=== PATIENT | female | born 1965 | race Caucasian/White ===

== ENCOUNTER 2016-08-20 22:14 | Observation (INO) ==
[2016-08-20 23:41] LABS: Basophils % 0.3 %; Eosinophils # 0.2 K/mcL (0.0-0.6); Eosinophils % 1.8 %; Hematocrit 43.7 % (35.3-44.9); Hemoglobin 14.7 g/dL (11.5-15.4); Immature Granulocytes % 0.1 % (0-4); Immature Platelets 8.1 % (1.1-6.1); Mean Corpuscular HGB Conc 33.6 g/dL (31.6-35.5); Mean Corpuscular Hemoglobin 32.5 pg (28.0-33.3); Mean Corpuscular Volume 96.5 fL (83.0-100.0); Mean Platelet Volume 11.7 fL (9.4-12.4); Monocytes # 0.6 K/mcL (0.0-1.3); Monocytes % 6.6 %; Neutrophils # 5.1 K/mcL (1.6-8.9); Platelet Count 189 K/mcL (140-400); Red Blood Count 4.53 M/mcL (3.82-4.97); Red Cell Distribution Width 13.7 % (11.5-14.5); Segmented Neutrophils % 57.2 %
[2016-08-20 23:47] LABS: INR 1.3; Prothrombin Time 14.2 Seconds (9.4-12.1)
--- NOTE | 2016-08-20 23:47 | Emergency Department Note ---
Disposition Clinical Impression: Palpitations Chest pain Qualifiers: Chest pain type: unspecified Qualified Code(s): R07.9 - Chest pain, unspecified Disposition: Admitted As Inpatient Condition: Fair Arrhythmia/Palpitations HPI - General Chief Complaint: ED Arrhythmia/Palpitations Stated Complaint: afib Time Seen by Provider: 08/20/16 23:14 Source: patient Nursing Notes Reviewed: Yes Vital Signs Reviewed: Yes - History of Present Illness HPI Narrative: 50-year-old alert and oriented nontoxic appearing female presents to the emergency department for a chief complaint of "A. fib". The patient states that she awoke this morning with a sensation of palpitations. She states that these palpitations were Made with episodes of shortness of breath but even occurred at rest. She also complains of a "burning in her chest" that she describes as substernal in nature. She complains of painful inspiration, but states that the pain is primarily located in her upper back when she takes a deep breath. She denies any nausea, vomiting, or diaphoresis. She denies any fever. She does complain of a dry nonproductive cough that is intermittent in nature. She states that her shortness of breath occurs at exertion, at rest, and is worsened by lying flat. She also complains of pain in her right calf, as well as swelling in her right calf compared to her left. She states that she has had a previous DVT in the right lower extremity. She is currently on Elaqius for DVT prophylaxis. Pt Subjective Complaint: palpitations Onset (ago): hour(s) Duration: intermittent Severity: moderate Context: occurred during rest Arrhythmia History: atrial fibrillation, AICD Associated symptoms: Reports: chest pain, shortness of breath, cough, muscle cramps. Denies: nausea, vomiting, diaphoresis - Related Data Home Medications Medication Instructions Recorded Confirmed Alprazolam [Xanax 1 MG Tablet] 1 mg PO TID 03/02/15 12/15/15 Albuterol Sulfate [Albuterol 90 mcg IH Q4HR PRN 08/05/15 12/15/15 Inhaler] Alprazolam [Xanax] 2 mg PO HS 08/05/15 12/15/15 Melatonin 5 mg PO HS PRN 08/05/15 12/15/15 Oxycodone HCl/Acetaminophen 1 each PO QID PRN 08/13/15 12/15/15 [Percocet 5-325 mg Tablet] Atenolol [Tenormin] 50 mg PO DAILY 12/15/15 12/15/15 Mupirocin 1 gm TP TID 12/15/15 12/15/15 Zolpidem [Ambien] 5 mg PO HS PRN 12/15/15 12/15/15 Previous Rx's Medication Instructions Recorded Apixaban [Eliquis] 5 mg PO BID #60 tablet 08/17/15 Apixaban [Eliquis] 2.5 mg PO BID #60 tablet 02/24/16 Compression Socks, Medium [Futuro 1 each MC DAILY #2 each 02/24/16 Restoring] Allergies Allergy/AdvReac Type Severity Reaction Status Date / Time citalopram [From Celexa] Allergy See Verified 12/15/15 08:47 Comments morphine Allergy Hives Verified 01/31/16 18:12 Penicillins Allergy Hives Verified 12/15/15 08:47 All systems ED: reviewed and negative except as stated. Constitutional: Denies: fever, chills, weakness, weight change Cardiovascular: Reports: as per HPI, chest pain, palpitations, dyspnea on exertion, edema (Right lower extremity). Denies: syncope Respiratory: Reports: as per HPI, cough, dyspnea. Denies: wheezes, hemoptysis, stridor, sputum production Gastrointestinal: Denies: abdominal pain, nausea, vomiting, diarrhea, constipation, hematemesis, melena, hematochezia Genitourinary: Denies: dysuria, frequency, hematuria, discharge Musculoskeletal: Reports: as per HPI, myalgia (Right lower extremity pain). Denies: back pain, neck pain, arthralgia Integumentary: Denies: rash, abrasion, lesions Neurological: Denies: headache, weakness, numbness, paresthesias, confusion, abnormal gait, vertigo Psychiatric: Denies: anxiety, depression, suicidal thoughts, homicidal thoughts , auditory hallucinations, visual hallucinations Endocrine: Denies: fatigue Hematological/Lymphatic: Denies: easy bleeding, easy bruising Past Medical History - Past Medical History Attestation: Yes The following information was validated with the patient. Source: patient Medical history: Reports: atrial fibrillation, CVA, DVT, pulmonary embolus, other Surgical history: Reports: appendectomy, hysterectomy, pacemaker/AICD, other Psychiatric history: Reports: anxiety, depression CUSTOMER MANAGER history: Reports: no CUSTOMER MANAGER history - Social History Smoking Status: Current every day smoker Smokeless Tobacco Status: No Alcohol use: Reports: none Drug use: Reports: none Physical Exam - General General appearance: alert, in no apparent distress - Head Head exam: atraumatic, normocephalic, normal inspection - Eye Eye exam: Present: normal appearance, PERRL, EOMI. Absent: nystagmus - ENT ENT exam: mucous membranes moist - Neck Neck exam: Present: normal inspection, full ROM, trachea midline - Chest Chest inspection: Present: normal inspection, symmetric chest wall rise - Respiratory Respiratory exam: Present: normal lung sounds bilaterally. Absent: respiratory distress, wheezes, stridor, accessory muscle use, prolonged expiratory phase - Cardiovascular Cardiovascular exam: Present: regular rate, normal rhythm, normal heart sounds - Abdominal Exam Abdominal exam: Present: soft, Non-Tender, normal bowel sounds. Absent: tenderness, distention, guarding, rebound, rigidity - Extremities Exam Extremities exam: Present: normal inspection, full ROM. Absent: tenderness, pedal edema - Neurological Exam Neurological exam: Present: alert, oriented X3 - Psychiatric Psychiatric exam: Present: normal affect, normal mood - Skin Skin exam: Present: warm, dry, intact, normal color. Absent: rash, cyanosis, diaphoresis, erythema, pallor, mottled Course Course Narrative: At this time, laboratory and chest x-ray results are pending. 0057: I discussed this patient's case with Dr. Norwood. Dr. Norwood has had a [id number] evaluation with the patient. Dr. Norwood recommends admission to the hospitalist service for A. fib/chest pain rule out. I have discussed this plan with the patient and the patient is in agreement. Vital Signs Temperature 97.8 F 08/20/16 22:19 Pulse Rate 71 08/20/16 22:19 Respiratory Rate 18 08/20/16 22:19 Blood Pressure 106/69 08/20/16 22:19 O2 Sat by Pulse Oximetry 99 08/20/16 22:19 Temperature 97.8 F 08/20/16 22:19 Pulse Rate 59 08/21/16 00:57 Respiratory Rate 20 08/21/16 02:19 Blood Pressure 85/60 08/21/16 02:19 O2 Sat by Pulse Oximetry 98 08/21/16 00:57 Oxygen Delivery Oxygen Delivery Room Air Arrhythmia/Palpitations - MDM Narrative Medical decision making narrative: 0140: I spoke with Dr. Walker of the hospitalist service. Dr. Walker accepts the patient for admission to the hospital. - Medical Records Medical records reviewed: Yes I reviewed the patient's medical records. - Lab Data Lab results reviewed: Yes I reviewed the patient's lab results. Lab results narrative: Laboratory Last Values WBC 8.9 K/mcL (4.3-11.1) 08/20/16 23:32 RBC 4.53 M/mcL (3.82-4.97) 08/20/16 23:32 Hgb 14.7 g/dL (11.5-15.4) 08/20/16 23:32 Hct 43.7 % (35.3-44.9) 08/20/16 23:32 MCV 96.5 fL (83.0-100.0) 08/20/16 23:32 MCH 32.5 pg (28.0-33.3) 08/20/16 23: MCHC 33.6 g/dL (31.6-35.5) 08/20/16 23:32 RDW 13.7 % (11.5-14.5) 08/20/16 23:32 Plt Count 189 K/mcL (140-400) 08/20/16 23:32 MPV 11.7 fL (9.4-12.4) 08/20/16 23:32 Immature Gran % 0.1 % (0-4) 08/20/16 23: Seg Neutrophils % 57.2 % 08/20/16 23:32 Lymphocytes % 34.0 % 08/20/16 23:32 Monocytes % 6.6 % 08/20/16 23:32 Eosinophils % 1.8 % 08/20/16 23:32 Basophils % 0.3 % 08/20/16 23:32 Neutrophils # 5.1 K/mcL (1.6-8.9) 08/20/16 23:32 Lymphocytes # 3.0 K/mcL (0.6-4.6) 08/20/16 23:32 Monocytes # 0.6 K/mcL (0.0-1.3) 08/20/16 23:32 Eosinophils # 0.2 K/mcL (0.0-0.6) 08/20/16 23:32 Basophils # 0.0 K/mcL (0.0-0.2) 08/20/16 23:32 Immature Plt Fraction 8.1 % (1.1-6.1) H 08/20/16 23:32 PT 14.2 Seconds (9.4-12.1) H 08/20/16 23:32 INR 1.3 08/20/16 23:32 APTT 44.3 Seconds (26.0-36.0) H 08/20/16 23:32 D-Dimer 293 ng/mLFEU (0-500) 08/20/16 Unknown Sodium 142 mEq/L (136-145) 08/20/16 23:32 Potassium 3.9 mEq/L (3.5-4.5) 08/20/16 23:32 Chloride 107 mEq/L (98-109) 08/20/16 23:32 Carbon Dioxide 25 mEq/L (19-29) 08/20/16 23:32 BUN 16 mg/dL (7-20) 08/20/16 23:32 Creatinine 0.92 mg/dL (0.57-1.11) 08/20/16 23:32 Est GFR ( Amer) > 60 (> 60) 08/20/16 23:32 Est GFR (Non-Af Amer) > 60 (> 60) 08/20/16 23:32 BUN/Creatinine Ratio 17 (6-26) 08/20/16 23:32 Glucose 96 mg/dL (70-99) 08/20/16 23:32 Calculated Osmolality 295 (280-300) 08/20/16 23:32 Calcium 9.6 mg/dL (8.6-10.8) 08/20/16 23:32 Troponin I 0.01 ng/mL (0-0.03) 08/20/16 23:32 TSH 2.460 mcIU/mL (0.350-4.840) 08/20/16 23:32 Result diagrams: 08/20/16 23:32 08/20/16 23:32 Lab Results 08/20/16 08/20/16 08/20/16 Range/Units 23:32 23:32 23:32 WBC 8.9 (4.3-11.1) K/mcL RBC 4.53 (3.82-4.97) M/mcL Hgb 14.7 (11.5-15.4) g/dL Hct 43.7 (35.3-44.9) % MCV 96.5 (83.0-100.0) fL MCH 32.5 (28.0-33.3) pg MCHC 33.6 (31.6-35.5) g/dL RDW 13.7 (11.5-14.5) % Plt Count 189 (140-400) K/mcL MPV 11.7 (9.4-12.4) fL Immature Gran % 0.1 (0-4) % Seg Neutrophils % 57.2 % Lymphocytes % 34.0 % Monocytes % 6.6 % Eosinophils % 1.8 % Basophils % 0.3 % Neutrophils # 5.1 (1.6-8.9) K/mcL Lymphocytes # 3.0 (0.6-4.6) K/mcL Monocytes # 0.6 (0.0-1.3) K/mcL Eosinophils # 0.2 (0.0-0.6) K/mcL Basophils # 0.0 (0.0-0.2) K/mcL Immature Plt Fraction 8.1 H (1.1-6.1) % PT 14.2 H (9.4-12.1) Seconds INR 1.3 APTT 44.3 H (26.0-36.0) Seconds D-Dimer (0-500) ng/mLFEU Sodium 142 (136-145) mEq/L Potassium 3.9 (3.5-4.5) mEq/L Chloride 107 (98-109) mEq/L Carbon Dioxide 25 (19-29) mEq/L BUN 16 (7-20) mg/dL Creatinine 0.92 (0.57-1.11) mg/dL Est GFR ( Amer) > 60 (> 60) Est GFR (Non-Af Amer) > 60 (> 60) BUN/Creatinine Ratio 17 (6-26) Glucose 96 (70-99) mg/dL Calculated Osmolality 295 (280-300) Calcium 9.6 (8.6-10.8) mg/dL Troponin I (0-0.03) ng/mL TSH 2.460 (0.350-4.840) mcIU/mL 08/20/16 08/20/16 Range/Units 23:32 Unknown WBC (4.3-11.1) K/mcL RBC (3.82-4.97) M/mcL Hgb (11.5-15.4) g/dL Hct (35.3-44.9) % MCV (83.0-100.0) fL MCH (28.0-33.3) pg MCHC (31.6-35.5) g/dL RDW (11.5-14.5) % Plt Count (140-400) K/mcL MPV (9.4-12.4) fL Immature Gran % (0-4) % Seg Neutrophils % % Lymphocytes % % Monocytes % % Eosinophils % % Basophils % % Neutrophils # (1.6-8.9) K/mcL Lymphocytes # (0.6-4.6) K/mcL Monocytes # (0.0-1.3) K/mcL Eosinophils # (0.0-0.6) K/mcL Basophils # (0.0-0.2) K/mcL Immature Plt Fraction (1.1-6.1) % PT (9.4-12.1) Seconds INR APTT (26.0-36.0) Seconds D-Dimer 293 (0-500) ng/mLFEU Sodium (136-145) mEq/L Potassium (3.5-4.5) mEq/L Chloride (98-109) mEq/L Carbon Dioxide (19-29) mEq/L BUN (7-20) mg/dL Creatinine (0.57-1.11) mg/dL Est GFR ( Amer) (> 60) Est GFR (Non-Af Amer) (> 60) BUN/Creatinine Ratio (6-26) Glucose (70-99) mg/dL Calculated Osmolality (280-300) Calcium (8.6-10.8) mg/dL Troponin I 0.01 (0-0.03) ng/mL TSH (0.350-4.840) mcIU/mL - Radiology Data Radiology results reviewed: Yes I reviewed the patient's radiology results. Chest X-Ray 08/20/16 22:30 IMPRESSION: No acute cardiopulmonary abnormality. D/ / Aravind Maynard MD / Aravind Maynard MD Interpreting Provider: Aravind Maynard MD - EKG Data EKG attestation: Yes I reviewed and interpreted this EKG. EKG results narrative: EKG reviewed by Dr. Norwood as well. EKG shows a sinus rhythm with occasional PVCs at a rate of 75 bpm and a nonspecific T-wave abnormality. No STEMI. EKG shows normal: sinus rhythm Rate: normal Rhythm: NSR Attestation Statement - Attestation Attestation: I, Kamran Norwood MD, personally performed a history and physical exam of the patient and discussed their management with the midlevel provicer, PAC/VULCANIZED FIBER UNIT OPERATOR. I reviewed the midlevel provider's note and agree with the documented findings, medical decision making, and plan of care. 50-year-old female presents to the emergency department with a complaint of palpitations and burning chest pain today. She has a history of atrial fibrillation and has a pacemaker defibrillator. She also complains of pain in her right calf muscle. She has a history of DVT in is on Eliquis. On examination patient is a well-developed well-nourished well-appearing female in no acute distress. She is alert and oriented 3. There is no cyanosis or diaphoresis. Breath sounds are clear and equal bilaterally. Heart regular rate and rhythm. Abdomen soft and nontender with normal bowel sounds. There is mild tenderness of the right posterior calf with no palpable cords. Homans sign is negative. No swelling or discoloration. Labs reviewed. D-dimer normal. Chest x-ray negative. The hospitalist, Dr. Walker, was consulted and accepted admission of the patient. He requested a CTA of the chest.
[2016-08-20 23:50] LABS: Activated Partial Thrombo Time 44.3 Seconds (26.0-36.0)
[2016-08-20 23:52] LABS: BUN/Creatinine Ratio 17 (6-26); Blood Urea Nitrogen 16 mg/dL (7-20); Calcium 9.6 mg/dL (8.6-10.8); Carbon Dioxide 25 mEq/L (19-29); Chloride 107 mEq/L (98-109); Glucose 96 mg/dL (70-99); Osmolality,Calculated 295 (280-300); Potassium 3.9 mEq/L (3.5-4.5); Sodium 142 mEq/L (136-145); eGFR For African Americans > 60 (> 60); eGFR For Non-African Americans > 60 (> 60)
[2016-08-21] MEDS ORDERED: Aspirin 81 MG TAB.CHEW PO ONE (00:57)
[2016-08-21] MEDS ORDERED: Ondansetron ODT 4 MG TAB.RAPDIS SL PRN (04:08)
[2016-08-21] MEDS ORDERED: Acetaminophen 325 MG TABLET PO PRN (04:08)
[2016-08-21] MEDS ORDERED: Naloxone 0.4 MG/ML INJ IVP PRN (04:08)
[2016-08-21] MEDS ORDERED: Melatonin 3 MG TABLET PO PRN (05:14)
--- NOTE | 2016-08-21 06:17 | Internal Med History&Physical ---
<Oneida Juarez - Last Filed: 08/21/16 07:23> Date of Encounter: 08/21/16 Time of Encounter: 06:17 Assessment and Plan (1) PAF (paroxysmal atrial fibrillation) Status: Chronic Patient with paroxysmal A Fib on atenolol and eliquis. She spontaneously reverted to normal sinus. Will continue prescribed medications. (2) Right calf pain Status: Acute Patient with right calf pain and chest pain. Concern for possible PE or DVT. Will do BL venous duplex ultrasound. (3) Chest pain Status: Acute Patient with right calf pain and chest pain. Concern for possible PE or DVT. CTA of chest negative for any PE. Will trend troponins and get an ECHO. Qualifiers: Chest pain type: unspecified Qualified Code(s): R07.9 - Chest pain, unspecified (4) DVT prophylaxis Status: Acute Patient on Eliquis for DVT prophylaxis Internal Medicine - H&P: HPI Chief complaint: Palpitations, chest pain Admitted From: Emergency Dept Plans for Post Hospital Care: Home History of present illness: Ms. Hidalgo is a 50 year old female with PMH of atrial fibrillation with a AICD/ pacemaker in place, CVA and DVT/PE on Eliquis who came to the ED with palpitations and chest pain. Patient reports that the morning she noted palpitations, similar to her previous episodes of atrial fibrillation. She says that her pacemaker would try to pace and she could feel sharp, little pains. This went on all day and didn't get any better. Then she developed a burning in the middle of her chest. The pain does not radiate and nothing makes it better or worse. She reports associated pain in her right calf. She has had a DVT in the right calf before. She states that the leg is slightly swollen but not red or hot. Patient reports cough and back pain. Denies headache, changes in vision, shortness of breath, abdominal pain, changes in bowel or bladder. In the ED, patient was afebrile, with irregular heart rate between 60-70 bpm. Respiratory rate 14-20 with oxygenation saturation 99% on RA. HR 85-114/60-79. Patient reports that she always runs low because of the medication she is on for her atrial fibrillation. D-dimer was 293, troponin 0.01. Remainder of labs were within normal limits. CXR was negative for acute abnormalities. CTA showed a small right pleural effusion, no PE. On exam, patient is sleeping comfortably. She awakens easily and converses appropriately. Heart is now regular rate and rhythm. Lungs clear to auscultation. Chest is non-tender to palpation. Right calf is slightly more swollen than her left with posterior tenderness. No palpable cord, erythema or warmth. Past Med Surg Social Fam HX - Past Medical History Medical history: atrial fibrillation, CVA, DVT, pulmonary embolus, other Psychiatric history: anxiety, depression - Past Surgical History Surgical History: appendectomy, hysterectomy, pacemaker/AICD, other - Social History Smoking Status: Current every day smoker Smokeless Tobacco Status: No Alcohol use: none Drug use: none - Family History Father Hx Family Cardiac Disorders: Yes Mother Adopted: No Family Member Ethnicity: Non- Living Status: Still Living Hx Family Cardiac Disorders: Yes (CAD) Hx Family Respiratory Disorders: Yes (copd) Hx Family Cancer: Yes Hx Family GI Disorders: No Hx Family Endocrine Disorder: No Hx Family Neuromuscular Disorders: No Hx Family Neurologic Disorders: No Hx Family HEENT Disorders: No Hx Family Autoimmune Disorders: No Internal Medicine - H&P: Meds Alprazolam [Xanax 1 MG Tablet] 1 mg PO QID 03/02/15 [History] Albuterol Sulfate [Albuterol Inhaler] 1 - 2 puff IH Q4HR PRN 08/05/15 [History] Melatonin 5 mg PO HS PRN 08/05/15 [History] Oxycodone HCl/Acetaminophen [Percocet 5-325 mg Tablet] 1 tab PO TID PRN [History] Atenolol [Tenormin] 50 mg PO DAILY 12/15/15 [History] Apixaban [Eliquis] 2.5 mg PO BID #60 tablet 02/24/16 [Rx] Cholecalciferol (D-3) [Vitamin D] 1 tab PO DAILY 08/21/16 [History] Famotidine [Pepcid] 20 mg PO BID 08/21/16 [History] Furosemide [Lasix] 20 mg PO DAILY PRN 08/21/16 [History] Promethazine [Phenergan] 25 mg PO Q6HR 08/21/16 [History] Allergies citalopram [From Celexa] Allergy (Verified 12/15/15 08:47) See Comments long QT morphine Allergy (Verified 01/31/16 18:12) Hives Penicillins Allergy (Verified 12/15/15 08:47) Hives All Systems PM: A 10-system review of systems was performed and is negative for pertinent findings except as documented above in the HPI. - Constitutional Constitutional: no chills, no fever(s) - EENT Eyes: no blurry vision, no change in vision - Cardiovascular Cardiovascular ROS IM: chest pain, irregular heart rhythm, palpitations, no dyspnea, no dyspnea on exertion, no syncope - Respiratory Respiratory: cough, no dyspnea, no wheezing - Gastrointestinal Gastrointestinal: nausea, no abdominal pain, no constipation, no diarrhea, no vomiting - Genitourinary Genitourinary: no dysuria - Neurological Neurological ROS: no confusion, no dizziness, no weakness - Constitutional Vitals: Temp Pulse Resp BP Pulse Ox 97.5 F L 60 14 114/79 99 08/21/16 02:34 08/21/16 02:34 08/21/16 02:34 08/21/16 02:34 08/21/16 02:34 General appearance: Present: A&O X 3, no acute distress, answers questions appropriately - Head Head exam: Present: atraumatic, normal inspection, normocephalic - Eye Eye exam: Present: EOMI, normal appearance - ENT ENT exam: Present: mucous membranes moist - Respiratory Respiratory exam: Present: CTAB. Absent: decreased breath sounds, respiratory distress, wheezes - Cardiovascular Cardiovascular exam: Present: RRR - GI/Abdominal GI/Abdominal exam: Present: soft. Absent: tenderness - Extremities Exam Additional comments: Right calf swollen and tender. No palpable cord, redness or warmth - Neurological Exam Neurological exam: Present: alert, CN II-XII intact, oriented X3, no focal deficits Internal Med - H&P Results - Labs CBC & Chem 7: 08/20/16 23:32 08/20/16 23:32 Labs: Cardiac Enzymes 08/21/16 Range/Units 04:44 Troponin I 0.01 (0-0.03) ng/mL <Cheo Walker - Last Filed: 08/22/16 01:27> Date of Encounter: 08/22/16 Internal Medicine - H&P: HPI History of present illness: Ms. Hidalgo is a 50 year old female All Systems PM: A 10-system review of systems was performed and is negative for pertinent findings except as documented above in the HPI. - Constitutional Vitals: Temp Pulse Resp BP Pulse Ox 97.6 F 60 16 90/62 99 08/21/16 11:53 08/21/16 11:53 08/21/16 11:57 08/21/16 12:34 08/21/16 11:57 Internal Med - H&P Results - Labs CBC & Chem 7: 08/20/16 23:32 08/20/16 23:32 Labs: Cardiac Enzymes 08/21/16 08/21/16 Range/Units 04:44 11:16 Troponin I 0.01 0.01 (0-0.03) ng/mL - Attending Attestation I examined this patient and my medical decision-making was reviewed with the Resident Physician, Dr Juarez. I agree with the documented findings, disposition and treatment plan as described except to the extent set forth below. Patient is chest pain-free right now. Heart is regular S1-S2. Lungs are clear. Lower extremity exam with no edema. We will monitor patient on telemetry. Obtain echocardiogram. Obtain lower extremity ultrasound.
[2016-08-21] MEDS: ALPRAZolam 1 MG TABLET PO SCH ×2 (08:02→13:13)
[2016-08-21] MEDS ORDERED: Furosemide 20 MG TABLET PO SCH (09:00)
[2016-08-21] MEDS ORDERED: *HR* OxyCODONE/APAP 5/325 TABLET PO SCH (09:00)
[2016-08-21] MEDS ORDERED: Famotidine 20 MG TABLET PO SCH (09:00)
[2016-08-21] MEDS ORDERED: APIXABAN 5 MG TABLET PO SCH (09:00)
[2016-08-21 12:35] VITALS: BP 90/62
--- NOTE | 2016-08-21 13:24 | Discharge Summary ---
Date of Encounter: 08/21/16 Time of Encounter: 13:22 - Discharge Diagnosis (1) PAF (paroxysmal atrial fibrillation) Priority: Primary Status: Chronic (2) Chest pain Priority: Secondary Status: Acute Qualifiers: Chest pain type: unspecified Qualified Code(s): R07.9 - Chest pain, unspecified (3) Right calf pain Priority: Secondary Status: Acute - Discharge Medications Home Medications: Alprazolam [Xanax 1 MG Tablet] 1 mg PO QID 03/02/15 [History] Albuterol Sulfate [Albuterol Inhaler] 90 mcg IH Q4HR PRN 08/05/15 [History] Melatonin 5 mg PO HS PRN 08/05/15 [History] Oxycodone HCl/Acetaminophen [Percocet 5-325 mg Tablet] 5 mg PO TID 08/13/15 [ History] Atenolol [Tenormin] 50 mg PO DAILY 12/15/15 [History] Apixaban [Eliquis] 2.5 mg PO BID #60 tablet 02/24/16 [Rx] Cholecalciferol (D-3) [Vitamin D] 1 tab PO DAILY 08/21/16 [History] Famotidine [Pepcid] 20 mg PO BID 08/21/16 [History] Furosemide [Lasix] 20 mg PO DAILY 08/21/16 [History] Promethazine [Phenergan] 25 mg PO Q6HR 08/21/16 [History] Allergies/Adverse Reactions: Allergies citalopram [From Celexa] Allergy (Verified 12/15/15 08:47) See Comments long QT morphine Allergy (Verified 01/31/16 18:12) Hives Penicillins Allergy (Verified 12/15/15 08:47) Hives Procedures/tests Complete & Pending: Procedures Performed prior 72 hours Category Date Time Status EV echocardiogram Routine Y 08/21/16 04:10 Completed Venous Doppler [EV venous imaging LE BI] Routine Y 08/21/16 04:11 Completed Date of admission: 08/21/16 01:49 Primary care physician: Shilo Storm MD Discharging clinician: Flower Ann Anticipated date of discharge: 08/21/16 - Patient Status Disposition: Home, Self-Care Condition: Good Functional capacity at discharge: independent ambulation Overall status at discharge: patient is progressing back to baseline - Discharge Instructions Instructions: Atrial Fibrillation (DC), Chest Pain (DC) Follow Up With: Gil Clemens MD [Partnered Physician] - (For follow-up and cardiac stress test in 1-2 weeks) Shilo Storm MD [Primary Care Provider] - (In 1-2 weeks) - Diet and Activity Activity: increase activity as tolerated Diet: low salt diet Hospital course: Ms. Hidalgo is a 50 year old female with history of paroxysmal atrial fibrillation, AICD, DVT and PE was observed in the hospital after presenting with an episode of palpitations and chest discomfort related to atrial fibrillation. Her rhythm spontaneously converted to sinus rhythm in the ER. Her troponins were negative during his stay here. She had a negative CT angiogram of the chest for PE and she also had negative venous Dopplers of her lower extremity. At the time, patient's symptoms have subsided and she will be discharged and follow up with her primary care provider. A 2-D echocardiogram was done and the result is currently pending. This can be followed by her primary care provider. Given her age and associated history of PE, atrial fibrillation, would recommend cardiac stress test as outpatient. - Time Spent with Patient Total time spent providing and/or coordinating discharge services: Less than 30 minutes (15 min) - Constitutional Vitals: Temp Pulse Resp BP Pulse Ox 97.6 F 60 16 90/62 99 08/21/16 11:53 08/21/16 11:53 08/21/16 11:57 08/21/16 12:34 08/21/16 11:57 General appearance: Present: A&O X 3, no acute distress, answers questions appropriately - Respiratory Respiratory exam: Present: CTAB. Absent: accessory muscle use, rales, rhonchi, wheezes - Cardiovascular Cardiovascular exam: Present: RRR, +S1, +S2. Absent: diastolic murmur, gallop, rubs, systolic murmur - GI/Abdominal GI/Abdominal exam: Present: normal bowel sounds, soft, no peritoneal signs. Absent: distended, tenderness - Extremities Exam Extremities exam: Present: warm, radial pulses palpable and symetrical. Absent : calf tenderness, cyanotic, pedal edema - Neurological Exam Neurological exam: Present: alert, oriented X3, no focal deficits. Absent: facial droop, speech deficit - Attending Attestation This document has been at least partially created by [id number] recognition technology by Dr. Ann. Errors in grammar, wording or other phrases may exist. If errors are found after the documentation is signed, they will be addressed individually in the addendum section of this document when appropriate.
--- NOTE | 2016-08-21 15:40 | ECHO - Doppler Report ---
Echocardiogram Name: Yadira Hidalgo Date of Study: 08/21/2016 Date: 1965 Ht: 63.0 in Medical Record#: [id number] Age: 50 Wt: 148.0 lb Gender: Female BSA: 1.7 Order #: [id number] Location: [facility] Room #: 3B44 Reading Physician: Analia Scott DO Insulation Extruder Operator: Nydia Mccullough RVT, [facility] Ordering Physician: Oneida Juarez DO Primary Physician: Hermann Storm MD Indications: Chest pain Impressions: LVEF 35%. Moderate global LV systolic dysfunction. There is evidence of moderate diastolic dysfunction of the left ventricle. RV is normal in size with mild to moderate reduction in function. Mild mitral regurgitation. Mild tricuspid regurgitation. No pulmonary hypertension. Left Ventricular Wall Motion: Rest Echo Findings The apex, apical inferior, mid inferior, basal inferior, apical anterior, mid anterior, basal anterior, apical septal, mid inferior septal, basal inferior septal, apical lateral, mid anterior lateral, basal anterior lateral, mid anterior septal, mid inferior lateral, basal anterior septal and basal inferior lateral mendes were hypokinetic. Findings: Study Quality * Technically adequate exam. ECG Findings * Normal sinus rhythm. Aortic Valve * No aortic regurgitation. * Aortic valve not well visualized. * No aortic stenosis. Tricuspid Valve * Tricuspid valve not well visualized. * Mild tricuspid regurgitation. * Estimated RA pressure is 3 mmHg. * Estimated RVSP is 20 mmHg. * No pulmonary hypertension. Pulmonic Valve * Pulmonic valve is not well visualized. * No pulmonic stenosis. * No pulmonic regurgitation. Pulmonary Artery * Pulmonary artery not well visualized. Left Atrium * Normal left atrial size. Right Atrium * Normal right atrial size. Mitral Valve * No mitral stenosis. * Mild mitral regurgitation. * Normal structure. Left Ventricle * Moderate left ventricular diastolic dysfunction. * LVEF 35%. * Normal LV size. Interatrial Septum * No evidence of PFO by color Doppler. IVC * Normal IVC dimensions and inspiratory collapse. Right Ventricle * Normal RV size with mild to moderate reduction in function. Pericardium * There is no pericardial effusion present. Device lead * A device lead was visualized in the right atrium and right ventricle. Aorta * Normally sized aortic root. History Hypercholesteremia History of Smoking Years 20 Packs 1 Family History of CAD Pacer/ICD Implant 11/07/2015 a Previous Echo was performed. Measurements: BP: 90/ 59 2D Normal Values IVSd: 1.00 cm 0.6 - 1.0 cm LVIDd: 4.20 cm 3.7 - 5.6 cm LVPWd: .80 cm 0.6 - 1.1 cm LVIDs: 3.45 cm 1.5 - 3.6 cm AO: 2.60 cm < 4.0 cm LA: 2.65 cm 2.0 - 4.0cm %FS: 16.70 cm >25 % LA volume: 25 Mitral Valve Dec Time:239.00 msec Peak E:.77 m/sec Peak A:.55 m/sec E/A Ratio:1.4 Peak E' Lat Ben:7.7 cm/s Peak E' Med Ben:7.31 cm/s E/E' Lat Ratio:9.9 E/E' Med Ratio:10.5 Tricuspid Valve TV Regurg Peak Grad: 17.00mmHg TV Regurg Peak Ben: 2.05m/sec Updated by Analia Scott on 08/21/2016 3:35:36 PM electronically signed on 08/21/2016 3:36:33 PM with status of Final Wall Motion Pretty: 1=Normal, 2=Hypokinesis, 3=Akinesis, 4=Dyskinesis, 5=Aneurysmal, 6=Hyperkinetic, X=Not Visualized (Blank)=Missing
--- NOTE | 2016-08-21 16:20 | Venous Imaging Report ---
LE Venous Duplex Patient Name:Yadira Hidalgo Order Number:[id number] Procedure Date:08/21/2016 Date:1965Age:50 yrs Gender:Female [facility] Room #: 3B44 Hydraulic Dredge Operator:Nydia Mccullough RVT, RDCS Referring MD:Oneida Juarez DO popcorn attendant:Hermann Storm MD Reading MD:Luis Felipe Aguillon MD Primary Indications:hx of DVT with R leg pain Secondary Indications: Risk Factors Yes/No Hx of DVT Yes Anticoagulants Yes Impressions: Normal bilateral lower extremity deep and superficial venous exam. Recommendations: Test completed on 08/21/2016 at 1:12:19 pm. Critical findings reported to Elisha to relay message by phone at 1:12:37 pm on 08/21/2016 by Nydia Mccullough RVT, RDCS. Findings Venous Duplex Results: Right: Venous imaging of the lower extremity reveals full patency and normal vessel compressibility of the right distal iliac, right common femoral, right superficial femoral, right popliteal, right posterior tibial, right peroneal, right saphenofemoral junction, right great saphenous and right lesser saphenous. Doppler signals in the evaluated veins were normal. Left: Venous imaging of the lower extremity reveals full patency and normal vessel compressibility of the left distal iliac, left common femoral, left superficial femoral, left popliteal, left posterior tibial, left peroneal, left saphenofemoral junction, left great saphenous and left lesser saphenous. Doppler signals in the evaluated veins were normal. Lower Extremity Venous Duplex Side Vein Compress Spontaneous Flow Augment Diameter (cm) Depth (cm) Right Saphenofemoral Junction Normal Yes Phasic Yes Right Great Saphenous Normal Yes Phasic Yes Right Lesser Saphenous Normal Yes Phasic Yes Left Distal Iliac Normal Yes Phasic Yes Left Common Femoral Normal Yes Phasic Yes Left Superficial Femoral Normal Yes Phasic Yes Left Popliteal Normal Yes Phasic Yes Left Posterior Tibial Normal Yes Phasic Yes Left Peroneal Normal Yes Phasic Yes Left Saphenofemoral Junction Normal Yes Phasic Yes Left Great Saphenous Normal Yes Phasic Yes Left Lesser Saphenous Normal Yes Phasic Yes Right Distal Iliac Normal Yes Phasic Yes Right Common Femoral Normal Yes Phasic Yes Right Superficial Femoral Normal Yes Phasic Yes Right Popliteal Normal Yes Phasic Yes Right Posterior Tibial Normal Yes Phasic Yes Right Peroneal Normal Yes Phasic Yes Updated by Luis Felipe Aguillon MD on 08/21/2016 4:13:26 PM electronically signed on 08/21/2016 4:13:47 PM with status of Final
--- NOTE | 2016-08-23 15:40 | Electrocardiograph Report ---
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
== END 2016-08-21 13:52 | disposition home or self-care (01) ==
LOC: 3BNU 22:14 → EMEROO 22:14 → SUATTDRO 08-21 01:49 → 3BNU 08-21 02:19
PROVIDERS: ADMIT Internal Medicine; ATTEND Internal Medicine

== ENCOUNTER 2017-06-14 11:02 | Observation (INO) ==
[2017-06-14] MEDS ORDERED: 0.9 % Sodium Chloride 1,000 ML IVC ONE (11:52)
[2017-06-14] MEDS: Metoclopramide 10 MG/2 ML VIAL IVP ONE ×2 (11:58)
[2017-06-14 12:17] LABS: INR 1.2; Prothrombin Time 12.7 Seconds (9.4-12.1)
[2017-06-14 12:18] LABS: BUN/Creatinine Ratio 20 (6-26); Blood Urea Nitrogen 17 mg/dL (7-20); Carbon Dioxide 28 mEq/L (19-29); Chloride 108 mEq/L (98-109); Potassium 3.9 mEq/L (3.5-4.5); Sodium 142 mEq/L (136-145)
[2017-06-14 12:19] LABS: Activated Partial Thrombo Time 37.9 Seconds (26.0-36.0); Calcium 9.5 mg/dL (8.6-10.8); Glucose 97 mg/dL (70-99); Osmolality,Calculated 295 (280-300); eGFR For African Americans > 60 (> 60); eGFR For Non-African Americans > 60 (> 60)
[2017-06-14 12:30] LABS: Basophils % 0.4 %; Eosinophils # 0.1 K/mcL (0.0-0.6); Eosinophils % 1.3 %; Hematocrit 42.8 % (35.3-44.9); Hemoglobin 14.4 g/dL (11.5-15.4); Immature Granulocytes % 0.3 % (0-4); Lymphocytes # 2.3 K/mcL (0.6-4.6); Lymphocytes % 32.3 %; Mean Corpuscular HGB Conc 33.6 g/dL (31.6-35.5); Mean Corpuscular Hemoglobin 32.1 pg (28.0-33.3); Mean Corpuscular Volume 95.3 fL (83.0-100.0); Mean Platelet Volume 10.8 fL (9.4-12.4); Monocytes # 0.5 K/mcL (0.0-1.3); Monocytes % 6.8 %; Neutrophils # 4.2 K/mcL (1.6-8.9); Platelet Count 197 K/mcL (140-400); Red Blood Count 4.49 M/mcL (3.82-4.97); Red Cell Distribution Width 12.8 % (11.5-14.5); Segmented Neutrophils % 58.9 %
[2017-06-14 12:48] LABS: Bilirubin,Urine Negative (Negative); Blood,Urine Negative (Negative); Clarity,Urine Clear (Clear); Color,Urine Yellow (Yellow); Glucose,Urine (UA) Normal (Normal); Ketones,Urine Negative (Negative); Leukocyte Esterase,Urine Negative (Negative); Nitrite,Urine Negative (Negative); Protein,Urine Negative (Neg-Trace); Urobilinogen,Urine Normal (Normal)
--- NOTE | 2017-06-14 12:58 | Emergency Department Note ---
Disposition Clinical Impression: Paresthesias, Headache Disposition: Admitted As Inpatient Condition: Good Time of Disposition: 11:40 General Adult HPI - General Chief complaint: ED Headache Stated complaint: headache, neck pain Time Seen by Provider: 06/14/17 11:15 Source: patient Mode of arrival: ambulatory Limitations: no limitations Nursing Notes Reviewed: Yes Vital Signs Reviewed: Yes - History of Present Illness HPI Narrative: 51-year-old female presents to emergency Department with concerns of pain to the left neck, paresthesias to the left tongue, left face and left upper extremity. Patient states symptoms have been present over the past 3 days however today her pain worsened and she also became confused while driving, she started to drive erratically and felt like passing out. Patient states she has a history of CVA, A. fib, V. tach, prolonged QT syndrome, as well as a history of MS. Patient states she often has paresthesias with her MS flares although she has never had pain or seizures of her face and left upper extremity. Patient denies chest pain in the emergency department. She denies fever, chills , vomiting, diarrhea, recent trauma. Pain Scale: 5 - Related Data Home Medications Medication Instructions Recorded Confirmed ALPRAZolam [Xanax 1 MG Tablet] 1 mg PO QID 03/02/15 06/14/17 Albuterol Sulfate [Albuterol 1 - 2 puff IH Q4HR PRN 08/05/15 06/14/17 Inhaler] Atenolol [Tenormin] 50 mg PO DAILY 12/15/15 06/14/17 Famotidine [Pepcid] 20 mg PO BID 08/21/16 06/14/17 Furosemide [Lasix] 40 mg PO DAILY PRN 08/21/16 06/14/17 Apixaban [Eliquis] 2.5 mg PO BID 03/08/17 06/14/17 Oxycodone HCl/Acetaminophen 1 tab PO BID PRN 03/08/17 06/14/17 [Percocet 5-325 mg Tablet] Lisinopril [Zestril] 2.5 mg PO DAILY 06/14/17 06/14/17 Allergies Allergy/AdvReac Type Severity Reaction Status Date / Time citalopram [From Celexa] Allergy See Verified 06/14/17 12:02 Comments Penicillins Allergy Hives Verified 06/14/17 12:02 All systems ED: reviewed and negative except as stated. Review of Systems: As Per HPI Constitutional: Reports: weakness. Denies: fever, chills Cardiovascular: Denies: chest pain, palpitations, dyspnea on exertion Respiratory: Denies: cough, dyspnea, wheezes Gastrointestinal: Denies: abdominal pain, nausea, vomiting, diarrhea Genitourinary: Denies: urgency, dysuria Musculoskeletal: Reports: neck pain Neurological: Reports: weakness, numbness, paresthesias Past Medical History - Past Medical History Attestation: Yes The following information was validated with the patient. Source: patient Medical history: Reports: atrial fibrillation, CVA, DVT, hyperlipidemia, pulmonary embolus, other Surgical history: Reports: appendectomy, hysterectomy, pacemaker/AICD, other Psychiatric history: Reports: anxiety, depression, PTSD ONLINE EDITOR history: Reports: no ONLINE EDITOR history - Social History Smoking Status: Current every day smoker Smokeless Tobacco Status: No Alcohol use: Reports: none Drug use: Reports: none Physical Exam General: Alert and in no acute distress Skin: Warm, dry, intact Head: Normocephalic and atraumatic Neck: Supple, trachea midline and no tenderness Cardiovascular: RRR, no murmur, normal perfusion Respiratory: CTAB, no wheezing, cough, or respiratory distress Musculoskeletal: Normal strength, no tenderness, swelling or deformity GI: Soft, nontender, nondistended. Bowel sounds present Neuro: A&O to person, place, time and situation. Patient has subjective paresthesias to the left lower face and left upper extremity. Other cranial nerves are intact. There are no focal motor deficits seen on exam. Psychiatric: cooperative and appropriate mood and affect. - General Limitations: no limitations General appearance: alert Course Vital Signs Temperature 98.1 F 06/14/17 11:07 Pulse Rate 65 06/14/17 11:07 Respiratory Rate 20 06/14/17 11:07 Blood Pressure 127/81 06/14/17 11:07 O2 Sat by Pulse Oximetry 100 06/14/17 11:07 Temperature 97.9 F 06/14/17 16:52 Pulse Rate 52 06/14/17 16:52 Respiratory Rate 16 06/14/17 16:52 Blood Pressure 104/68 06/14/17 16:52 O2 Sat by Pulse Oximetry 96 06/14/17 16:52 Oxygen Delivery Oxygen Delivery Room Air Medical Decision Making - MDM Narrative Medical decision making narrative: CT of the head did not reveal acute fracture or intracranial hemorrhage. Patient will be given aspirin in the emergency department. She will be admitted for further care and evaluation of her near syncopal episode, paresthesias, and possible MS flare. - Medical Records Medical records reviewed: Yes I reviewed the patient's medical records. - Lab Data Lab results reviewed: Yes I reviewed the patient's lab results. Result diagrams: 06/14/17 12:00 06/14/17 12:00 Lab Results 06/14/17 06/14/17 06/14/17 Range/Units 12:00 12:00 12:00 WBC 7.1 (4.3-11.1) K/mcL RBC 4.49 (3.82-4.97) M/mcL Hgb 14.4 (11.5-15.4) g/dL Hct 42.8 (35.3-44.9) % MCV 95.3 (83.0-100.0) fL MCH 32.1 (28.0-33.3) pg MCHC 33.6 (31.6-35.5) g/dL RDW 12.8 (11.5-14.5) % Plt Count 197 (140-400) K/mcL MPV 10.8 (9.4-12.4) fL Immature Gran % 0.3 (0-4) % Seg Neutrophils % 58.9 % Lymphocytes % 32.3 % Monocytes % 6.8 % Eosinophils % 1.3 % Basophils % 0.4 % Neutrophils # 4.2 (1.6-8.9) K/mcL Lymphocytes # 2.3 (0.6-4.6) K/mcL Monocytes # 0.5 (0.0-1.3) K/mcL Eosinophils # 0.1 (0.0-0.6) K/mcL Basophils # 0.0 (0.0-0.2) K/mcL PT 12.7 H (9.4-12.1) Seconds INR 1.2 APTT 37.9 H (26.0-36.0) Seconds D-Dimer 257 (0-500) ng/mLFEU Sodium 142 (136-145) mEq/L Potassium 3.9 (3.5-4.5) mEq/L Chloride 108 (98-109) mEq/L Carbon Dioxide 28 (19-29) mEq/L BUN 17 (7-20) mg/dL Creatinine 0.87 (0.57-1.11) mg/dL Est GFR ( Amer) > 60 (> 60) Est GFR (Non-Af Amer) > 60 (> 60) BUN/Creatinine Ratio 20 (6-26) Glucose 97 (70-99) mg/dL Calculated Osmolality 295 (280-300) Calcium 9.5 (8.6-10.8) mg/dL Troponin I (0-0.03) ng/mL Triglycerides 100 (< 150) mg/dL Cholesterol 217 H (< 200) mg/dL LDL Cholesterol, Calc 142 H (0-99) mg/dL VLDL Cholesterol, Calc 20 (< 31) mg/dL HDL Cholesterol 55 (40-59) mg/dL Cholesterol/HDL Ratio 3.9 (0-4.9) Urine Color (Yellow) Urine Clarity (Clear) Urine pH (5.0-8.0) pH Units Ur Specific Murray (1.010-1.025) Urine Protein (Neg-Trace) mg/dL Urine Glucose (UA) (Normal) mg/dL Urine Ketones (Negative) mg/dL Urine Blood (Negative) Urine Nitrite (Negative) Urine Bilirubin (Negative) Urine Urobilinogen (Normal) mg/dL Ur Leukocyte Esterase (Negative) Ur Culture Indicated? (NO) 06/14/17 06/14/17 Range/Units 12:00 12:35 WBC (4.3-11.1) K/mcL RBC (3.82-4.97) M/mcL Hgb (11.5-15.4) g/dL Hct (35.3-44.9) % MCV (83.0-100.0) fL MCH (28.0-33.3) pg MCHC (31.6-35.5) g/dL RDW (11.5-14.5) % Plt Count (140-400) K/mcL MPV (9.4-12.4) fL Immature Gran % (0-4) % Seg Neutrophils % % Lymphocytes % % Monocytes % % Eosinophils % % Basophils % % Neutrophils # (1.6-8.9) K/mcL Lymphocytes # (0.6-4.6) K/mcL Monocytes # (0.0-1.3) K/mcL Eosinophils # (0.0-0.6) K/mcL Basophils # (0.0-0.2) K/mcL PT (9.4-12.1) Seconds INR APTT (26.0-36.0) Seconds D-Dimer (0-500) ng/mLFEU Sodium (136-145) mEq/L Potassium (3.5-4.5) mEq/L Chloride (98-109) mEq/L Carbon Dioxide (19-29) mEq/L BUN (7-20) mg/dL Creatinine (0.57-1.11) mg/dL Est GFR ( Amer) (> 60) Est GFR (Non-Af Amer) (> 60) BUN/Creatinine Ratio (6-26) Glucose (70-99) mg/dL Calculated Osmolality (280-300) Calcium (8.6-10.8) mg/dL Troponin I 0.00 (0-0.03) ng/mL Triglycerides (< 150) mg/dL Cholesterol (< 200) mg/dL LDL Cholesterol, Calc (0-99) mg/dL VLDL Cholesterol, Calc (< 31) mg/dL HDL Cholesterol (40-59) mg/dL Cholesterol/HDL Ratio (0-4.9) Urine Color Yellow (Yellow) Urine Clarity Clear (Clear) Urine pH 7.0 (5.0-8.0) pH Units Ur Specific Murray 1.010 (1.010-1.025) Urine Protein Negative (Neg-Trace) mg/dL Urine Glucose (UA) Normal (Normal) mg/dL Urine Ketones Negative (Negative) mg/dL Urine Blood Negative (Negative) Urine Nitrite Negative (Negative) Urine Bilirubin Negative (Negative) Urine Urobilinogen Normal (Normal) mg/dL Ur Leukocyte Esterase Negative (Negative) Ur Culture Indicated? NO (NO) - Radiology Data Radiology results reviewed: Yes I reviewed the patient's radiology results. - EKG Data EKG #1 EKG attestation: Yes I reviewed and interpreted this EKG. EKG results narrative: ECG - interpreted by ED physician. Rate 54 sinus bradycardia, no STEMI. Prolongs QTC at 508
[2017-06-14] MEDS ORDERED: diazePAM 5 MG TABLET PO ONE (13:08)
[2017-06-14] MEDS ORDERED: Aspirin 81 MG TAB.CHEW PO ONE (13:08)
[2017-06-14] MEDS ORDERED: *HR* HYDROmorphone (PF) 1 MG/ML SYRINGE IVP PRN (14:48)
[2017-06-14] MEDS ORDERED: Acetaminophen 325 MG TABLET PO PRN (14:48)
[2017-06-14] MEDS ORDERED: Ondansetron 4 MG/2 ML VIAL IVP PRN (14:48)
[2017-06-14] MEDS ORDERED: Naloxone 0.4 MG/ML INJ IVP PRN (14:48)
[2017-06-14] MEDS ORDERED: Furosemide 40 MG TABLET PO PRN (14:59)
--- NOTE | 2017-06-14 15:22 | Internal Med History&Physical ---
<Yury Webb - Last Filed: 06/14/17 17:48> Date of Encounter: 06/14/17 Time of Encounter: 14:30 Assessment and Plan (1) Neurological symptoms Current visit: Yes Status: Acute Acute reported neurological sx which pt. states worsened at 2:30 a.m. this morning w/dizziness, confusion, pain in left neck and left side of head, and numbness/weakness to the left side of the face. Pt. states sx began three days ago intermittently. On exam, pt. does not show focal weakness, facial droop, speech deficit, or other neurological signs. Pt. has hx of CVA in 2007 w/o residual weakness present. NIHSS modified scale. Padding to bed rails. Lipitor 40 mg HS added. Continue Eliquis and aspirin therapy. Neuro checks Q2HR. Dysphagia screen and NPO status until dysphagia screen passed. Bialteral carotid Dopplers ordered. Limited echocardiogram ordered. Neuro consult ordered and discussed w/Dr. Lamb w/recommendation for MRI of head/brain w/wo contrast and MRI of cervical spine wo contrast. However, pts AICD is non-compatible w/ regular or low magnetic MRI. Will digress to neurology to decide further imaging. Continue pts. Eloquence, lisinopril, atenolol, and aspirin therapy. Pt. discussed w/Dr. Ann who agrees w/plan of care. Pt is high risk for further CVA d/t current sx, hx of atrial fibrillation/DVT/PE, and risk factors of continued tobacco abuse. Observation. (2) Chest pain Current visit: Yes Status: Acute Acute chest pain that began this morning at 2:30 a.m. and she describes as left- sided under the breast w/radiation to the left jaw, neck, shoulder, and left back of head. Initial troponin 0.00. Will trend x2. Continuous cardiac telemetry. Pt. had echocardiogram in January 2017 which showed LVEF 40-45%, normal LV chamber size and wall thickness, global left ventricular systolic dysfunction , mild left ventricular diastolic dysfunction, normal right ventricular structure and function, no evidence of pulmonary hypertension, no significant valvular dysfunction. A device lead was visualized in the right atrium and right ventricle. Compared to report from 08/21/2016, LVEF has improved. Limited echocardiogram ordered. Continue aspirin therapy, lisinopril, atenolol, and add Lipitor 40 mg at bedtime. Pt. to be monitored closely. Will consider cardiology consult based on troponins and limited echo results. Qualifiers: Chest pain type: unspecified Qualified Code(s): R07.9 - Chest pain, unspecified (3) Atrial fibrillation Current visit: Yes Status: Chronic Hx of chronic atrial fibrillation. EKG today shows sinus bradycardia with first degree AV block, low QRS voltage in precordial leads, and prolonged QT interval. Continue pts. Eliquis. Continuous cardiac telemetry. Pt. reports she is unable to take cardizem, amiodarone, or Rythmol due to side effects. Qualifiers: Atrial fibrillation type: chronic Qualified Code(s): I48.2 - Chronic atrial fibrillation (4) History of CVA (cerebrovascular accident) Current visit: Yes Status: Chronic Hx of CVA in 2007 w/o residual weaknesses on exam. Pt. reports dizziness, confusion, and left-sided facial numbness and weakness that worsened this morning at 2:[address] of the head/brain today shows no acute intracranial abnormality. (5) HLD (hyperlipidemia) Current visit: Yes Status: Chronic Hx of chronic HLD. Pt. does not currently take statin. Lipid panel in a.m. labs. Lipitor 40 mg HS added. Qualifiers: Hyperlipidemia type: pure hypercholesterolemia Qualified Code(s): E78.00 - Pure hypercholesterolemia, unspecified; E78.0 - Pure hypercholesterolemia (6) HTN (hypertension) Current visit: Yes Status: Chronic Hx of chronic HTN. Monitor pt. and VS. Continue patient's lisinopril and atenolol. Qualifiers: Hypertension type: essential hypertension Qualified Code(s): I10 - Essential (primary) hypertension (7) History of DVT (deep vein thrombosis) Current visit: Yes Status: Chronic Hx of DVT and PE in 2014 following sinus surgery. Pt. placed on Eliquis for DVT prophylaxis. Continue Eliquis. (8) ICD (implantable cardioverter-defibrillator) in place Current visit: Yes Status: Chronic Hx of AICD placement in December 2015. Order to interrogate AICD to assess for abnormal activity after 12:01 a.m this morning. (9) GERD (gastroesophageal reflux disease) Current visit: Yes Status: Chronic Hx of chronic GERD. IVP Zofran 4 mg Q6 PRN. Continue pts. Pepcid. Qualifiers: Esophagitis presence: esophagitis presence not specified Qualified Code(s) : K21.9 - Gastro-esophageal reflux disease without esophagitis (10) Tobacco abuse Current visit: Yes Status: Chronic Hx of chronic tobacco abuse. Pt. reports still smoking 1/2 PPD. Denies need for nicotine patch while admitted. (11) DVT prophylaxis Current visit: Yes Status: Acute Continue pts. Eliquis for DVT prophylaxis. Monitor pt. for signs of bleeding. Internal Medicine - H&P: HPI Chief complaint: Neuro sx/Headache Admitted From: Emergency Dept Plans for Post Hospital Care: Home History of present illness: Ms. Hidalgo is a 51 year old female with medical hx of chronic atrial fibrillation, CVA in 2007, DVT in right In August 2014, hyperlipidemia, pulmonary embolus in August 2014, and hypertension presents from the ED with chief complaint of headache and neurological symptoms which worsened at 2:30 this morning. Patient states symptoms have been intermittent for the past 3 days but became worse when driving to work w/confusion, dizziness, and near syncope. Patient reports severe pain in the left neck and back of left hand beginning at 2:30 AM as well. Patient reports left-sided facial numbness and weakness and chest pain under the left breast that she describes as sharp and intermittent with radiation to left neck, shoulder, and back of head. Patient denies recent illness, fever, chills, nausea, vomiting, diaphoresis, cough, changes in vision, palpitations, abdominal pain, diarrhea, constipation, or syncope. Past Med Surg Social Fam HX - Past Medical History Source: patient, old records reviewed Medical history: atrial fibrillation, CVA (2007), DVT (2015 following sinus surgery), hyperlipidemia, pulmonary embolus (2015 following sinus surgery), other Psychiatric history: anxiety, depression, PTSD - Past Surgical History Surgical History: appendectomy, hysterectomy (Total ), pacemaker/AICD, other ( Sinus surgery in 2015) - Social History Smoking Status: Current every day smoker Packs per day: 1/2 PPD Smokeless Tobacco Status: No Alcohol use: none Drug use: none Occupational status: employed Current living situation: Home Activity Level: Independent ambulation Recent Out of Country Travel Within the Last 8 Weeks: No Exposure or Possible Exposure to Illness During Travel: No - Family History Father Race: Family Member Ethnicity: Non- Living Status: Age at : 52 Cause of : [place] Hx Family Cardiac Disorders: Yes (Triple bypass before age 50, Afib, V-tach) Mother Adopted: No Race: Family Member Ethnicity: Non- Living Status: Still Living Hx Family Cardiac Disorders: Yes (CAD, Leaky valves) Hx Family Respiratory Disorders: Yes (COPD) Hx Family Endocrine Disorder: Yes (Hypoglycemia) Brother Race: Family Member Ethnicity: Non- Living Status: Still Living Hx Family Cardiac Disorders: Yes (Afib, V-tach) Son Race: Family Member Ethnicity: Non- Living Status: Age at : 22 Cause of : Lt. ventricular hypertrophy Hx Family Cardiac Disorders: Yes (Lt. ventricular hypertrophy) Internal Medicine - H&P: Meds ALPRAZolam [Xanax 1 MG Tablet] 1 mg PO QID 03/02/15 [History] Albuterol Sulfate [Albuterol Inhaler] 1 - 2 puff IH Q4HR PRN 08/05/15 [History] Atenolol [Tenormin] 50 mg PO DAILY 12/15/15 [History] Famotidine [Pepcid] 20 mg PO BID 08/21/16 [History] Furosemide [Lasix] 40 mg PO DAILY PRN 08/21/16 [History] Apixaban [Eliquis] 2.5 mg PO BID 03/08/17 [History] Oxycodone HCl/Acetaminophen [Percocet 5-325 mg Tablet] 1 tab PO BID PRN [History] Lisinopril [Zestril] 2.5 mg PO DAILY 06/14/17 [History] 3 Allergy/AdvReac Type Severity Reaction Status Date / Time citalopram [From Celexa] Allergy See Verified 06/14/17 12:02 Comments Penicillins Allergy Hives Verified 06/14/17 12:02 All Systems PM: A 10-system review of systems was performed and is negative for pertinent findings except as documented above in the HPI. - Constitutional Constitutional: as per HPI, weakness, no chills, no fever(s), no night sweats - EENT Eyes: no change in vision, no discharge, no pain, no photophobia Ears: no ear discharge, no ear pain, no tinnitus Nose, mouth and throat: no dysphagia, no nasal discharge, no neck pain, no sore throat - Breasts Breasts: as per HPI - Cardiovascular Cardiovascular ROS IM: as per HPI, chest pain (Left-sided w/radiation to left jaw and neck), irregular heart rhythm - Respiratory Respiratory: no cough, no dyspnea, no wheezing, no excessive phlegm production - Gastrointestinal Gastrointestinal: no abdominal pain, no diarrhea, no hematemesis, no hematochezia, no melena, no nausea, no vomiting - Genitourinary Genitourinary: no change in urinary stream, no dysuria, no flank pain, no hematuria Menstruation: as per HPI, post hysterectomy - Musculoskeletal Musculoskeletal ROS IM: as per HPI, back pain, no numbness, no tingling - Integumentary Integumentary IM: no rash, no unusual bruising - Neurological Neurological ROS: no confusion, no convulsions, no focal weakness, no numbness, no tingling, no tremor(s) - Psychiatric Psychiatric: as per HPI, anxiety, depression, other (PTSD) - Endocrine Endocrine IM: as per HPI - Hematologic/Lymphatic Hematologic/Lymphatic: no easy bruising - Allergic/Immunologic Allergic/Immunologic: as per HPI - Constitutional Vitals: Temp Pulse Resp BP Pulse Ox 97.1 F L 91 17 104/69 95 06/14/17 14:19 06/14/17 14:19 06/14/17 14:19 06/14/17 14:19 06/14/17 14:49 General appearance: Present: cooperative, mild distress, A&O X 3, pleasant, obese, answers questions appropriately - Head Head exam: Present: atraumatic, normocephalic - Eye Eye exam: Present: PERRL, conjuntiva pink, sclera anicteric Pupils: Present: PERRL - ENT ENT exam: Present: normal exam, normal external ear exam - Neck Neck exam general surgery: Present: normal inspection, supple, trachea midline. Absent: lymphadenopathy - Respiratory Respiratory exam: Present: CTAB. Absent: accessory muscle use, rales, rhonchi, wheezes - Cardiovascular Cardiovascular exam: Present: irregular rhythm - GI/Abdominal GI/Abdominal exam: Present: normal bowel sounds, soft, no peritoneal signs. Absent: distended, tenderness - Rectal Rectal exam: Present: deferred - Additional comments: exam deferred. - Extremities Exam Extremities exam: Present: warm, radial pulses palpable and symmetrical. Absent : calf tenderness, cyanotic, pedal edema - Back Exam Back exam: Present: normal inspection - Neurological Exam Neurological exam: Present: alert, CN II-XII intact, oriented X3, no focal deficits, strengths equal and symetr throughout. Absent: pronater drift, facial droop, speech deficit - Expanded Neurological Exam Patient oriented to: Present: person, place, time Speech: Present: fluid speech - Psychiatric Psychiatric exam: Present: normal affect, normal mood - Skin Skin exam: Present: dry, intact Internal Med - H&P Results - Labs CBC & Chem 7: 06/14/17 12:00 06/14/17 12:00 - EKG Data EKG shows normal: sinus rhythm Rate: bradycardia - EKG Data Prior EKG available for review: yes EKG comments: 06/14/17 15:35 EKG dated 03/08/17 shows sinus bradycardia with prolonged QT interval. EKG dated 06/14/17 shows sinus bradycardia with first-degree AV block, low QRS voltage in precordial leads, and prolonged QT interval. - Diagnostic Studies CT scan - head Additional comments: Impressions Head CT 06/14/17 11:52 IMPRESSION: No acute intracranial abnormality. D/ / Cristo Adamson MD / Cristo Adamson MD Interpreting Provider: Cristo Adamson MD Chest x-ray Additional comments: Impressions Chest X-Ray 06/14/17 11:51 IMPRESSION: No active cardiopulmonary disease D/ / Henry Sun MD / Henry Sun MD Interpreting Provider: Henry Sun MD <Flower Ann - Last Filed: 06/14/17 18:36> Date of Encounter: 06/14/17 Time of Encounter: 15:00 Internal Medicine - H&P: HPI History of present illness: Ms. Hidalgo is a 51 year old female All Systems PM: A 10-system review of systems was performed and is negative for pertinent findings except as documented above in the HPI. - Constitutional Vitals: Temp Pulse Resp BP Pulse Ox 97.9 F 52 16 104/68 96 06/14/17 16:52 06/14/17 16:52 06/14/17 16:52 06/14/17 16:52 06/14/17 16:52 Internal Med - H&P Results - Labs CBC & Chem 7: 06/14/17 12:00 06/14/17 12:00 Labs: Cardiac Enzymes 06/14/17 Range/Units 17:21 Troponin I 0.01 (0-0.03) ng/mL - Attending Attestation I examined this patient and my medical decision-making was reviewed with the Nurse Practitioner Yury Webb. I agree with the documented findings, disposition and treatment plan as described except to the extent set forth below. 51-year-old female patient with history of prior CVA and possible multiple sclerosis presented to the ER with complaints of left-sided paresthesias and left neck pain. On examination she does have some numbness on the left side of the face and left upper extremity. Has good strength in all 4 extremities. Good reflexes. Normal cranial nerves. CT of the head does not show any acute stroke or bleed. Left-sided paresthesias: Possible TIA versus MS. Consult neurology. Follow the recommendations. Unable to do MRI due to presence of non-compatible AICD. Supportive care. Chest pain: Patient describes left-sided chest pain. Troponins negative. Will get limited echocardiogram to look for ejection fraction and wall motion. Continue home medications. Atrial fibrillation: Chronic. Continue Eliquis. Rate controlled
[2017-06-14 15:40] LABS: Chol/HDL Ratio 3.9 (0-4.9); Cholesterol 217 mg/dL (< 200); HDL Cholesterol 55 mg/dL (40-59); LDL Cholesterol,Calculated 142 mg/dL (0-99); Triglycerides 100 mg/dL (< 150)
[2017-06-14] MEDS: ALPRAZolam 1 MG TABLET PO SCH ×2 (16:02→21:55)
[2017-06-14] MEDS: *HR* OxyCODONE/APAP 5/325 TABLET PO PRN ×2 (16:06→21:54)
--- NOTE | 2017-06-14 16:25 | Neurology - Consult Note ---
Date of Encounter: 06/14/17 Time of Encounter: 16:22 Assessment and Plan (1) Numbness on left side Current Visit: Yes Status: Acute This patient apparently had a history of remote stroke in 2007 without any focal residual deficit as well as history of multiple other medical conditions including A. fib and DVT, PE, already on anticoagulation admitted with this left -sided symptoms Certainly stroke is a major concern though on examination I do not see any focal lateralizing sign She is already on Ellaquis suggested that she should continue for now She would need a stroke workup, She did have ICD implant by cardiology but hopefully will be able to get an MRI I suggest getting an MRI of the brain and at the same time MRI of the cervical spine with and without contrast especially there is a concern that her symptoms could be related to demyelinating disease for that reason she will need imaging studies with contrast to make sure there is no underlying demyelinating plaque At the same time also to look for any acute infarct Besides that she has multiple other risk factors and conditions that may be contributing to her symptoms Neck symptoms could be related to underlying degenerative cervical disc disease She already has been seen by hematology oncology and had a workup because of the DVT and PE in the past Patient would also benefit from physical therapy evaluation We will follow the patient with you (2) History of CVA (cerebrovascular accident) Current Visit: Yes Status: Chronic History of Present Illness HPI: Ms. Hidalgo is a 51 year old female admitted via emergency Department with concerns of pain to the left neck, paresthesias to the left tongue, left face and left upper extremity. Patient states symptoms have been present over the past 3 days however today her pain worsened and she also became confused while driving, she felt that she is going to passed out, she has a history of CVA 2008 seen a [facility] but did t do any follow up, no significant defecit , A. fib, V. tach, prolonged QT syndrome, Patient states she often has paresthesias of the left side of the body off-and- on for which her primary care physicians usually give her oral steroids that seems to have helped recently there was a concern that she may have symptoms of MS for which she was supposed to follow up with neurology though she has never been diagnosed with MS . Patient denies chest pain in the emergency department. She denies fever, chills , vomiting, diarrhea, recent trauma. According to the patient she has these numbness and paresthesias predominantly of the left side of the body off-and-on at the same time she also has left leg numbness from her back problem Past Med Surg Social Fam HX - Past Medical History Medical history: atrial fibrillation, CVA (2008), DVT (2015 following sinus surgery), hyperlipidemia, pulmonary embolus (2015 following sinus surgery), other Psychiatric history: anxiety, depression, PTSD - Past Surgical History Surgical History: appendectomy, hysterectomy (Total ), pacemaker/AICD, other ( Sinus surgery in 2014) - Social History Smoking Status: Current every day smoker Packs per day: 1/2 PPD Smokeless Tobacco Status: No Alcohol use: none Drug use: none - Family History Father Race: Family Member Ethnicity: Non- Living Status: Age at : 52 Cause of : [place] Hx Family Cardiac Disorders: Yes (Triple bypass before age 50, Afib, V-tach) Brother Race: Family Member Ethnicity: Non- Living Status: Still Living Hx Family Cardiac Disorders: Yes (Afib, V-tach) Son Race: Family Member Ethnicity: Non- Living Status: Age at : 22 Cause of : Lt. ventricular hypertrophy Hx Family Cardiac Disorders: Yes (Lt. ventricular hypertrophy) Mother Adopted: No Race: Family Member Ethnicity: Non- Living Status: Still Living Hx Family Cardiac Disorders: Yes (CAD, Leaky valves) Hx Family Respiratory Disorders: Yes (COPD) Hx Family Cancer: Yes Hx Family GI Disorders: No Hx Family Endocrine Disorder: Yes (Hypoglycemia) Hx Family Neuromuscular Disorders: No Hx Family Neurologic Disorders: No Hx Family HEENT Disorders: No Hx Family Autoimmune Disorders: No Medications and Allergies ALPRAZolam [Xanax 1 MG Tablet] 1 mg PO QID 03/02/15 [History] Albuterol Sulfate [Albuterol Inhaler] 1 - 2 puff IH Q4HR PRN 08/05/15 [History] Atenolol [Tenormin] 50 mg PO DAILY 12/15/15 [History] Famotidine [Pepcid] 20 mg PO BID 08/21/16 [History] Furosemide [Lasix] 40 mg PO DAILY PRN 08/21/16 [History] Apixaban [Eliquis] 2.5 mg PO BID 03/08/17 [History] Oxycodone HCl/Acetaminophen [Percocet 5-325 mg Tablet] 1 tab PO BID PRN [History] Lisinopril [Zestril] 2.5 mg PO DAILY 06/14/17 [History] 3 Allergy/AdvReac Type Severity Reaction Status Date / Time citalopram [From Celexa] Allergy See Verified 06/14/17 12:02 Comments Penicillins Allergy Hives Verified 06/14/17 12:02 All Systems: A 10-system review of systems was performed and is negative for pertinent findings except as documented above in the HPI. Physical Examination - Vital Signs Vital Signs: Initial Vital Signs Temp Pulse Resp BP Pulse Ox 98.1 F 65 20 127/81 100 06/14/17 11:07 06/14/17 11:07 06/14/17 11:07 06/14/17 11:07 06/14/17 11:07 - Constitutional General appearance: comfortable - Neurologic Sensorimotor examination: intact Motor examination - right side: 4/5: deltoids, biceps, triceps, wrist flexion, wrist extension, it application architect, hip flexors, tibialis Anterior, quadriceps, toe extension (EHL), plantarflexion Motor examination - left side: 4/5: deltoids, biceps, triceps, wrist flexion, wrist extension, hip flexors, it application architect, quadriceps, tibialis Anterior, toe extension (EHL), plantarflexion Detailed sensory examination: intact Reflex and gait examination: intact Reflexes: Biceps: 1+, Triceps: 1+, Brachioradialis: 1+, Patella: 2+, Achilles: 1 + Mental Status Examination: awake, alert, oriented to person, oriented to place, oriented to time, follows commands appropriately, answers questions appropriately, no agnosia, no aphasia, no aproxia Cranial nerve examination: PERRL, EOMI, visual jarvis intact, corneal reflexes brisk symmetrically, sensory to face intact, mastication intact, no facial asymmetry is present, no dysarthria, hearing is intact symmetrically, soft palate elevates bilaterally upon phonation, gag reflex intact, flexes SCM and trapezius muscles symmetrically with full power, tongue protrudes midline, no atrophy or facial fasiculations present Cerebellar examination: no dysmetria Results - Laboratory Findings CBC and BMP: 06/14/17 12:00 06/14/17 12:00 Abnormal lab findings: Abnormal lab results PT 12.7 Seconds (9.4-12.1) H 06/14/17 12:00 APTT 37.9 Seconds (26.0-36.0) H 06/14/17 12:00 Cholesterol 217 mg/dL (< 200) H 06/14/17 12:00 LDL Cholesterol, Calc 142 mg/dL (0-99) H 06/14/17 12:00 - Diagnostic Findings Additional findings: ct of the head is reported as negative Consult Discharge Plan - Plan Referrals: Shilo Strom MD [Primary Care Provider] -
[2017-06-14] MEDS: APIXABAN 2.5 MG TABLET PO SCH (21:54)
[2017-06-14] MEDS: Famotidine 20 MG TABLET PO SCH (21:54)
[2017-06-15 00:55] LABS: Basophils % 0.5 %; Eosinophils # 0.2 K/mcL (0.0-0.6); Eosinophils % 3.2 %; Hematocrit 39.8 % (35.3-44.9); Hemoglobin 13.6 g/dL (11.5-15.4); Immature Granulocytes % 0.3 % (0-4); Lymphocytes # 3.3 K/mcL (0.6-4.6); Lymphocytes % 52.4 %; Mean Corpuscular HGB Conc 34.2 g/dL (31.6-35.5); Mean Corpuscular Hemoglobin 32.6 pg (28.0-33.3); Mean Corpuscular Volume 95.4 fL (83.0-100.0); Mean Platelet Volume 10.4 fL (9.4-12.4); Monocytes # 0.4 K/mcL (0.0-1.3); Monocytes % 6.5 %; Neutrophils # 2.4 K/mcL (1.6-8.9); Platelet Count 172 K/mcL (140-400); Red Blood Count 4.17 M/mcL (3.82-4.97); Red Cell Distribution Width 13.1 % (11.5-14.5); Segmented Neutrophils % 37.1 %
[2017-06-15 01:05] LABS: INR 1.2; Prothrombin Time 13.4 Seconds (9.4-12.1)
[2017-06-15 01:08] LABS: Activated Partial Thrombo Time 37.2 Seconds (26.0-36.0)
[2017-06-15 01:12] LABS: Alanine Aminotransferase 13 Units/L (0-55); Albumin 2.9 g/dL (3.5-5.0); Albumin/Globulin Ratio 0.9 (1.1-2.2); Alkaline Phosphatase 62 Units/L (38-126); Aspartate Amino Transferase 13 Units/L (5-34); BUN/Creatinine Ratio 19 (6-26); Bilirubin,Total 0.4 mg/dL (0.2-1.2); Blood Urea Nitrogen 16 mg/dL (7-20); Calcium 8.4 mg/dL (8.6-10.8); Carbon Dioxide 23 mEq/L (19-29); Chloride 109 mEq/L (98-109); Globulin 3.1 g/dL (2.4-3.5); Glucose 95 mg/dL (70-99); Magnesium 1.7 mg/dL (1.6-2.6); Osmolality,Calculated 291 (280-300); Potassium 3.5 mEq/L (3.5-4.5); Sodium 140 mEq/L (136-145); eGFR For African Americans > 60 (> 60); eGFR For Non-African Americans > 60 (> 60)
[2017-06-15] MEDS: APIXABAN 2.5 MG TABLET PO SCH (07:52)
[2017-06-15] MEDS: ALPRAZolam 1 MG TABLET PO SCH ×2 (07:52→11:54)
[2017-06-15] MEDS: Famotidine 20 MG TABLET PO SCH (07:52)
[2017-06-15] MEDS ORDERED: Acetaminophen/Butalbital/CaffeineTABLET PO PRN (08:50)
[2017-06-15] MEDS ORDERED: methylPREDNISolone 125 MG/2 ML VIAL IVP SCH (10:00)
[2017-06-15] MEDS ORDERED: *HR* Promethazine 25 MG/ML VIAL IVP SCH (10:00)
[2017-06-15] MEDS ORDERED: methylPREDNISolone 125 MG/2 ML VIAL ONE (10:33)
[2017-06-15 11:16] VITALS: BP 90/60
--- NOTE | 2017-06-15 11:51 | Neurology Progress Note ---
Date of Encounter: 06/15/17 Time of Encounter: 08:35 Assessment and Plan (1) Numbness on left side Current Visit: Yes Status: Acute Subjective numbness of the left side of the body could be related to migrainous phenomenon she did have frequent headaches. No evidence of acute stroke or any other abnormality on CT scan of the head repeat CT with contrast also did not show any abnormality in fact no evidence of any old stroke needed any evidence of any white matter abnormality. CT of the cervical spine is also negative for any degenerative changes At this time on the basis of neurological examination as well as on imaging studies I did not find any significant abnormality on the CT scan though she did have a remote history of questionable stroke in the past but there was no evidence of any large stroke noted on the CT scan of the head indeed if she had a stroke and was probably a small vessel ischemic infarct. At the same time there was a concern that she may had an MS her last MRI was in 2005 that shows very minimal white matter changes after that she did not have any MRI but has multiple CT scan almost every year that did not show any significant abnormality. The CT scan and not very helpful for demyelinating disease but did not deviate there is a large demyelinating plaque it could have been seen on a CT scan especially when she has multiple or the last several years. At this time I would recommend that she should continue the current medication for acute migraine attack he can give her 1 dose of steroids do not need any tapering dose at the same time may benefit from preventive medication can start tizanidine 2 mg at bedtime. She also consumes significant amount of caffeine have suggested that she should taper it off as it may be contributing to these headaches also would not recommend Fioricet due to the caffeinated contents and may cause significant rebound headaches Patient could be discharged from neurology standpoint (2) History of CVA (cerebrovascular accident) Current Visit: Yes Status: Chronic continue on ASA, no evidence of TIA of stroke on this admission, continue on anticoagulation (ELIQUIS) with history of DVT and PE already seen HEME/ONCOLOGY in past may followup if needed Subjective Interval history: patient is in follow-up she denies any new symptoms is still having some headaches beside that no other focal abnormality. She is unable to get an MRI because of the ICD not compatible with the MRI. Initial CT of the head was negative for any acute stroke or any other abnormality Objective - Constitutional Vitals: Temp Pulse Resp BP Pulse Ox 98.2 F 65 15 90/60 97 06/15/17 11:16 06/15/17 11:16 06/15/17 11:16 06/15/17 11:16 06/15/17 11:16 - Neurological Exam Sensorimotor examination: Present: intact Motor Examination: Present: grossly full strength in all extremities Motor examination - left side: 4/5: deltoids, biceps, triceps, wrist flexion, wrist extension, hip flexors, cheese grader, quadriceps, tibialis Anterior, toe extension (EHL), plantarflexion Sensation intact: Present: intact Reflex and gait examination: intact Reflexes: Biceps: 1+, Triceps: 1+, Brachioradialis: 1+, Patella: 1+, Achilles: 1 + Mental Status Examination: Present: awake, alert, oriented to person, oriented to place, oriented to time, follows commands appropriately, answers questions appropriately, no agnosia, no aphasia, no aproxia Cranial nerve examination: Present: PERRL, EOMI, visual jarvis intact, corneal reflexes brisk symmetrically, sensory to face intact, mastication intact, no facial asymmetry is present, no dysarthria, hearing is intact symmetrically, soft palate elevates bilaterally upon phonation, gag reflex intact, flexes SCM and trapezius muscles symmetrically with full power, tongue protrudes midline, no atrophy or facial fasiculations present Cerebellar examination: Present: no dysmetria Results - Laboratory Findings CBC and BMP: 06/15/17 00:44 06/15/17 00:44 Abnormal lab findings: Abnormal lab results PT 13.4 Seconds (9.4-12.1) H 06/15/17 00:44 APTT 37.2 Seconds (26.0-36.0) H 06/15/17 00:44 Calcium 8.4 mg/dL (8.6-10.8) L 06/15/17 00:44 Albumin 2.9 g/dL (3.5-5.0) L 06/15/17 00:44 Albumin/Globulin Ratio 0.9 (1.1-2.2) L 06/15/17 00:44 Cholesterol 217 mg/dL (< 200) H 06/14/17 12:00 LDL Cholesterol, Calc 142 mg/dL (0-99) H 06/14/17 12:00 Consult Discharge Plan - Plan Referrals: Shilo Storm MD [Primary Care Provider] -
--- NOTE | 2017-06-15 12:06 | Cardiology Consult Note ---
Date of Encounter: 06/15/17 Time of Encounter: 12:00 Assessment and Plan (1) Chest pain Current Visit: Yes Status: Acute Atypical chest pain. Pain same as pain in the past. Troponin negative x3. EKG with no acute changes. [facility] 2013 showed normal coronaries. Stress test was ordered in April during her cardiology appt. Stress was not completed due to conflicting schedules per patient. I offered completing while in-patient. Patient declines due to headaches. She would like to wait until headaches resolve and reschedule stress test in the out-pt setting. Continue to monitor. Out-pt f/u will be scheduled in 2 weeks. Qualifiers: Chest pain type: unspecified Qualified Code(s): R07.9 - Chest pain, unspecified (2) ICD (implantable cardioverter-defibrillator) in place Current Visit: Yes Status: Chronic ICD check completed. Patient has a medtronic ICD. Device is functioning appropriately. Battery in good working order. There was 3 runs of breif tachycardia in the VT zone. Last episode was June 07. No shocks needed. There was 24 runs NSVT since last ICD check in May and last episode June 11, longest was 0.07 seconds. SVT seen up until 05/28/2017. Patient reports recent change in medication. States that Atenolol is the only medication that helps with her VT and palpitations. This was changed due to national shortage of atenolol. She restarted atenolol one week ago and reports she is feeling better. This correlates with findings on ICD. She declines considering medication change. Reports being on multiple antiarrhythmics in the past and she is unable to tolerate due to side effects. Recommend continuing atenolol and have her follow with her oncology pharmacist Dr. Gil Clemens. (3) Ventricular tachycardia Current Visit: Yes Status: Acute H/o prolonged QT syndrome and VT. ICD in place. See plan above. (4) Cardiomyopathy Current Visit: Yes Status: Acute H/o NICMP. TTE shows moderate reduction in LV function. EF 35%. EF seen to fluctuate between 35-45% this year. TTE 08/2016- EF 35%. Mild mitral regurgitation. Mild tricuspid regurgitation. TTE 01/2017- EF 45%. Mild diastolic dysfunction. No significant valvular disease. [facility] 2013- normal coronary arteries. Normal EF. Reports undergoing multiple LHC that shows no disease. Recommend continuing optimal medical management as tolerated. On atenolol and zestril. Unable to titrate due to hypotension. Currently euvolemic. Low sodium diet. Qualifiers: Cardiomyopathy type: unspecified Qualified Code(s): I42.9 - Cardiomyopathy , unspecified (5) PAF (paroxysmal atrial fibrillation) Current Visit: No Status: Chronic H/o PAF. Currently NSR. Telemetry check shows NSR. No VT. No afib. Continue atenolol and eliquis. Discussion w patient/family: The assessment and plan as outlined above was discussed with the patient and/or family members who expressed understanding and agreement. All questions were answered. Thank you for involving us in the care of your patient. Please call with any questions. History of Present Illness Consult date: 06/15/17 Requesting physician: Flower Ann Consult reason: Abnormal device check, Previous low EF Chief complaint: Chest pain, Left sided facial numbness History of present illness: Ms. Hidalgo is a 51 year old female with a history of VT, prolonged QT syndrome s /p ICD, NICMP, PE, atrial fibrillation on eliquis, COPD, CKD, HTN, CVA, and tobacco abuse who presented with severe headache and left sided facial numbness and tingling. She associated her symptoms with left neck pain radiating from her chest. She C/o intermittent chest pain at rest. States that she thought it was heart burn but became concerned when it radiated to her neck and she developed a headache. She also admits to frequent palpitations up until a few days ago. Reports that she was on atenolol and it was change to toprol xl when there was a shortage of the medication. She feels she had more palpitations due to toprol not working as well. Since re-starting atenolol one week ago she feels less palpitations. Hospital work-up included troponin found to be negative x 3, EKG showed SR with no ST changes, CT head was negative. TTE completed showed moderate global systolic dysfunction. EF 35%. Cardiology consulted for device check and for low EF. She was seen by neurology and diagnosed with migraines. She is unable to undergo MRI secondary to ICD. She has a history of cardiomyopathy with EF 40-45% presumed to be non-ischemic. Last LHC in 2013 showed normal coronary arteries. States she had around 10 LHC in the past showing no disease. Past Med Surg Social Fam HX - Past Medical History Attestation: Yes The following information was validated with the patient. Medical history: atrial fibrillation, CVA (2007), DVT (2015 following sinus surgery), hyperlipidemia, pulmonary embolus (2015 following sinus surgery), other Psychiatric history: anxiety, depression, PTSD - Past Surgical History Surgical History: appendectomy, hysterectomy (Total ), pacemaker/AICD, other ( Sinus surgery in 2014) - Social History Smoking Status: Current every day smoker Packs per day: 1/2 PPD Smokeless Tobacco Status: No Alcohol use: none Drug use: none - Family History Father Race: Family Member Ethnicity: Non- Living Status: Age at : 52 Cause of : [place] Hx Family Cardiac Disorders: Yes (Triple bypass before age 50, Afib, V-tach) Brother Race: Family Member Ethnicity: Non- Living Status: Still Living Hx Family Cardiac Disorders: Yes (Afib, V-tach) Son Race: Family Member Ethnicity: Non- Living Status: Age at : 22 Cause of : Lt. ventricular hypertrophy Hx Family Cardiac Disorders: Yes (Lt. ventricular hypertrophy) Mother Adopted: No Race: Family Member Ethnicity: Non- Living Status: Still Living Hx Family Cardiac Disorders: Yes (CAD, Leaky valves) Hx Family Respiratory Disorders: Yes (COPD) Hx Family Cancer: Yes Hx Family GI Disorders: No Hx Family Endocrine Disorder: Yes (Hypoglycemia) Hx Family Neuromuscular Disorders: No Hx Family Neurologic Disorders: No Hx Family HEENT Disorders: No Hx Family Autoimmune Disorders: No Medications and Allergies ALPRAZolam [Xanax 1 MG Tablet] 1 mg PO QID 03/02/15 [History] Albuterol Sulfate [Albuterol Inhaler] 1 - 2 puff IH Q4HR PRN 08/05/15 [History] Atenolol [Tenormin] 50 mg PO DAILY 12/15/15 [History] Famotidine [Pepcid] 20 mg PO BID 08/21/16 [History] Furosemide [Lasix] 40 mg PO DAILY PRN 08/21/16 [History] Apixaban [Eliquis] 2.5 mg PO BID 03/08/17 [History] Oxycodone HCl/Acetaminophen [Percocet 5-325 mg Tablet] 1 tab PO BID PRN [History] Lisinopril [Zestril] 2.5 mg PO DAILY 06/14/17 [History] 3 Allergy/AdvReac Type Severity Reaction Status Date / Time citalopram [From Celexa] Allergy See Verified 06/14/17 12:02 Comments Penicillins Allergy Hives Verified 06/14/17 12:02 All Systems Review: A 10-system review of systems was performed and is negative for pertinent findings except as documented above in the HPI. Physical Examination Vital Signs, Last 4 Hours Temp Pulse Resp BP Pulse Ox 06/15/17 11:16 98.2 F 65 15 90/60 97 General: Conversant, No Apparent Distress HEENT: Atraumatic, Normocephaly, Mucus Membranes Moist Neck: No JVD, Normal carotid pulses Cardiac: Reg Rate and Rhythm, Normal S1 and S2, No Murmur Lungs: Normal Breath Sounds, No Wheeze, Rales, Rhonchi Neuro: Alert and responsive, No focal deficits noted Abdomen: Soft, Non-Tender Skin: No rashes noted on visualized skin Musculoskeletal: No Chest Wall Tenderness Extremities: No Clubbing, No Cyanosis, No Edema, Normal Pulses Results 06/15/17 00:44 06/15/17 00:44 Lab Results 06/14/17 06/15/17 06/15/17 17:21 00:44 00:44 WBC 6.3 Hgb 13.6 Hct 39.8 Plt Count 172 INR APTT Sodium Potassium Chloride Carbon Dioxide BUN Creatinine Glucose Calcium Magnesium Total Bilirubin AST ALT Alkaline Phosphatase Troponin I 0.01 0.01 06/15/17 06/15/17 00:44 00:44 WBC Hgb Hct Plt Count INR 1.2 APTT 37.2 H Sodium 140 Potassium 3.5 Chloride 109 Carbon Dioxide 23 BUN 16 Creatinine 0.86 Glucose 95 Calcium 8.4 L Magnesium 1.7 Total Bilirubin 0.4 AST 13 ALT 13 Alkaline Phosphatase 62 Troponin I - Imaging and Cardiology Echo: report reviewed - EKG Interpretation EKG results cardiology: personally reviewed Consult Discharge Plan - Plan Referrals: Shilo Storm MD [Primary Care Provider] -
--- NOTE | 2017-06-15 14:49 | Discharge Summary ---
Date of Encounter: 06/15/17 Time of Encounter: 14:47 - Discharge Diagnosis (1) Numbness on left side Priority: Primary Status: Acute (2) Intractable headache Priority: Secondary Status: Acute Qualifiers: Headache type: tension-type Headache chronicity pattern: acute headache Qualified Code(s): G44.201 - Tension-type headache, unspecified, intractable (3) Atrial fibrillation Priority: Secondary Status: Chronic Qualifiers: Atrial fibrillation type: chronic Qualified Code(s): I48.2 - Chronic atrial fibrillation (4) Chest pain Priority: Secondary Status: Resolved Qualifiers: Chest pain type: unspecified Qualified Code(s): R07.9 - Chest pain, unspecified (5) GERD (gastroesophageal reflux disease) Priority: Secondary Status: Chronic Qualifiers: Esophagitis presence: esophagitis presence not specified Qualified Code(s) : K21.9 - Gastro-esophageal reflux disease without esophagitis (6) History of CVA (cerebrovascular accident) Priority: Secondary Status: Chronic (7) History of DVT (deep vein thrombosis) Priority: Secondary Status: Chronic (8) HLD (hyperlipidemia) Priority: Secondary Status: Chronic Qualifiers: Hyperlipidemia type: pure hypercholesterolemia Qualified Code(s): E78.00 - Pure hypercholesterolemia, unspecified; E78.0 - Pure hypercholesterolemia (9) HTN (hypertension) Priority: Secondary Status: Chronic Qualifiers: Hypertension type: essential hypertension Qualified Code(s): I10 - Essential (primary) hypertension (10) ICD (implantable cardioverter-defibrillator) in place Priority: Secondary Status: Chronic (11) Tobacco abuse Priority: Secondary Status: Chronic - Discharge Medications Prescriptions: Tizanidine HCl [Zanaflex] 2 mg PO HS #30 cap Home Medications: ALPRAZolam [Xanax 1 MG Tablet] 1 mg PO QID 03/02/15 [History] Albuterol Sulfate [Albuterol Inhaler] 1 - 2 puff IH Q4HR PRN 08/05/15 [History] Atenolol [Tenormin] 50 mg PO DAILY 12/15/15 [History] Famotidine [Pepcid] 20 mg PO BID 08/21/16 [History] Furosemide [Lasix] 40 mg PO DAILY PRN 08/21/16 [History] Apixaban [Eliquis] 2.5 mg PO BID 03/08/17 [History] Oxycodone HCl/Acetaminophen [Percocet 5-325 mg Tablet] 1 tab PO BID PRN [History] Lisinopril [Zestril] 2.5 mg PO DAILY 06/14/17 [History] Tizanidine HCl [Zanaflex] 2 mg PO HS #30 cap 06/15/17 [Rx] Allergies/Adverse Reactions: 3 Allergy/AdvReac Type Severity Reaction Status Date / Time citalopram [From Celexa] Allergy See Verified 06/14/17 12:02 Comments Penicillins Allergy Hives Verified 06/14/17 12:02 Procedures/tests Complete & Pending: Procedures Performed prior 72 hours Category Date Time Status CT cervical spine wo con [CT] Stat Cat Scan 06/15/17 10:[address] head/brain wo con [CT] Stat Cat Scan 06/15/17 10:02 Completed EV carotid duplex imaging BI Routine Y 06/14/17 15:04 Completed EV limited echocardiogram Routine Y 06/14/17 15:06 Completed Date of admission: 06/14/17 13:39 Primary care physician: Shilo Storm MD Consults: 06/14/17 14:52 Consult to [employer] Machine Operator [CONS] Routine Reason for SW Consult: Please assess for possible home needs for post- discharge planning. 06/14/17 14:53 Consult to Occupational Therapy [CONS] Routine Comment: Evaluate, develop and implement POC Reason for Consult: Patient has previous hx of CVA in 2007 and suspected MS w /weakness and occasional deficits. Please assess patient for strength, stability , safety, ambulation, and possible home assistive needs for post-discharge planning. 06/14/17 14:54 Consult to Physical Therapy [CONS] Routine Comment: Evaluate, develop and implement POC Reason for Consult: Patient has previous hx of CVA in 2007 and suspected MS w /weakness and occasional deficits. Please assess patient for strength, stability , safety, ambulation, and possible home assistive needs for post-discharge planning. 06/14/17 15:08 Consult to Neurology [CONS] Routine Consulting Provider: [facility] Reason for Consult: Pt. has hx of previous CVA in 2007, DVT/PE in 2014, suspected MS, and is currently admitted for neuro sx which began this morning at 2:30 a.m. Pt. reports she became dizzy and confused while driving to work and almost became syncopal. Reports severe left-sided neck pain and [place] on left back of skull since 2:30 a.m. Pt. also reports numbness and tingling in left side of face and tongue. CT of head today shows no acute intracranial abnormality. NIHSS modified scale ordered and neuro checks Q2HR. Call Completed: Yes Discharging clinician: Flower Ann Anticipated date of discharge: 06/15/17 - Patient Status Disposition: Home, Self-Care Condition: Good Functional capacity at discharge: independent ambulation Overall status at discharge: patient is progressing back to baseline - Discharge Instructions Instructions: Migraine Headache (DC), Migraine Headache (GEN), Chronic Hypertension (DC), Migraine Headache, Back End Developer (GEN) Follow Up With: Gil Clemens MD [Partnered Physician] - (The office will call you with a follow up appt.) Lucho Lamb MD [Partnered Physician] - (Follow up as scheduled on the 21 of June.) Shilo Storm MD [Primary Care Provider] - 06/29/17 9:30 am () Additional Instructions: Follow up with cardiology and neurology as scheduled - Diet and Activity Activity: increase activity as tolerated Diet: low fat, low cholesterol, low salt diet Hospital course: Ms. Hidalgo is a 51 year old female patient with history of long QT syndrome status post AICD placement, prior CVA, who presented to the ER with complaints of left facial and upper extremity paresthesias along with some left-sided chest pain. She is also having left neck pain and intractable headache. She was recently being worked up for possible MS by her primary care provider. Given her symptoms and her history she was evaluated for possible TIA. She was unable to get an MRI done because her AICD is incompatible with MRI. Initial head CT did not show any acute stroke. CT scan of the head with contrast was done today and it did not show any acute process. Patient also underwent cervical spine CT which showed mild multilevel degenerative changes but no bony spinal canal stenosis. Neurology was consulted in the care of this patient and they do not recommend any further workup at this time. She will follow up with neurology as outpatient. She was treated for her headache with Solu-Medrol and Phenergan with no improvement in her symptoms. Subjective numbness on the left side of the body could be related to her headache and could be complex migraine. Neurology recommends treating the migraine to help with her symptoms. The 2-D echocardiogram of the heart was done which showed an EF of 35%. With global LV systolic dysfunction. Cardiology was consulted. They did recommend stress test but patient did not want to get this done as she is being set up for outpatient stress test. She does want to be discharged home today in as she is clinically stable and does not have any focal weakness, she will be discharged home. She does continue to complain of left face and upper extremity numbness although it is improving. She will follow up with cardiology and with neurology as outpatient. She will be placed on tizanidine 2 mg at bedtime to help with her symptoms of headache and neck pain. - Time Spent with Patient Total time spent providing and/or coordinating discharge services: Greater than 30 minutes (32 min) - Constitutional Vitals: Temp Pulse Resp BP Pulse Ox 98.2 F 65 15 90/60 97 06/15/17 11:16 06/15/17 11:16 06/15/17 11:16 06/15/17 11:16 06/15/17 11:16 General appearance: Present: cooperative, A&O X 3, pleasant, no acute distress, obese, answers questions appropriately - Neck Neck exam general surgery: Present: supple, trachea midline. Absent: lymphadenopathy - Respiratory Respiratory exam: Present: CTAB. Absent: accessory muscle use, rales, rhonchi, wheezes - Cardiovascular Cardiovascular exam: Present: RRR, +S1, +S2. Absent: diastolic murmur, gallop, rubs, systolic murmur - GI/Abdominal GI/Abdominal exam: Present: normal bowel sounds, soft, no peritoneal signs. Absent: distended, tenderness - Neurological Exam Neurological exam: Present: CN II-XII intact, oriented X3, no focal deficits. Absent: facial droop, speech deficit Additional comments: Decreased sensation on left side of face and left upper extremity - Skin Skin exam: Present: dry, intact
[2017-06-15] MEDS ORDERED: tiZANidine 4 MG TABLET PO SCH (15:00)
--- NOTE | 2017-06-15 16:27 | Electrocardiograph Report ---
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
== END 2017-06-15 15:18 | disposition home or self-care (01) ==
LOC: EMEROO 11:02 → 3BNU 11:02 → SUATTDRO 13:39 → 3BNU 14:03
PROVIDERS: ADMIT Registered Nurse; ATTEND Internal Medicine

== ENCOUNTER 2020-09-26 18:15 | Observation (INO) ==
[2020-09-26] MEDS ORDERED: Magnesium Sulfate 1 GM/102 ML PIGGYBACK IVPB ONE (18:39)
[2020-09-26 18:48] LABS: Basophils % 0.2 %; Eosinophils % 0.3 %; Hematocrit 45.8 % (35.3-44.9); Hemoglobin 14.9 g/dL (11.5-15.4); Immature Granulocytes % 0.2 % (0-4); Lymphocytes # 1.6 K/mcL (0.6-4.6); Lymphocytes % 18.9 %; Mean Corpuscular HGB Conc 32.5 g/dL (31.6-35.5); Mean Corpuscular Hemoglobin 31.1 pg (28.0-33.3); Mean Corpuscular Volume 95.6 fL (83.0-100.0); Mean Platelet Volume 11.2 fL (9.4-12.4); Monocytes # 0.6 K/mcL (0.0-1.3); Monocytes % 6.5 %; Neutrophils # 6.3 K/mcL (1.6-8.9); Platelet Count 197 K/mcL (140-400); Red Blood Count 4.79 M/mcL (3.82-4.97); Red Cell Distribution Width 13.2 % (11.5-14.5); Segmented Neutrophils % 73.9 %; White Blood Count 8.6 K/mcL (4.3-11.1)
[2020-09-26 19:38] LABS: INR 1.1; Prothrombin Time 13.2 Seconds (9.4-12.1)
[2020-09-26 19:41] LABS: Activated Partial Thrombo Time 38.8 Seconds (26.0-36.0)
[2020-09-26 20:24] LABS: Alanine Aminotransferase 10 Units/L (7-52); Albumin 3.7 g/dL (3.5-5.7); Albumin/Globulin Ratio 1.2 (1.1-2.2); Alkaline Phosphatase 70 Units/L (34-104); Aspartate Amino Transferase 10 Units/L (13-39); BUN/Creatinine Ratio 19 (6-26); Bilirubin,Direct 0.1 mg/dL (0.0-0.2); Bilirubin,Indirect 0.3 mg/dL (0.0-1.0); Bilirubin,Total 0.4 mg/dL (0.3-1.0); Blood Urea Nitrogen 16 mg/dL (6-20); Calcium 9.2 mg/dL (8.6-10.3); Carbon Dioxide 27 mEq/L (23-29); Chloride 107 mEq/L (98-107); Glucose 94 mg/dL (70-105); Magnesium 2.9 mg/dL (1.6-2.6); Osmolality,Calculated 289 (280-300); Potassium 3.9 mEq/L (3.5-5.1); Sodium 139 mEq/L (136-145); Total Protein 6.7 g/dL (6.4-8.9); Troponin I < 0.03 ng/mL (< 0.04); eGFR For African Americans > 60 (> 60); eGFR For Non-African Americans > 60 (> 60)
[2020-09-26] MEDS ORDERED: atenoloL 25 MG TABLET PO ONE (21:34)
[2020-09-27] MEDS ORDERED: Ondansetron 4 MG/2 ML VIAL IVP PRN (07:33)
[2020-09-27] MEDS ORDERED: Naloxone 0.4 MG/ML INJ IVP PRN (07:33)
[2020-09-27] MEDS ORDERED: *HR* OxyCODONE/APAP 10/325 TABLET PO PRN (07:48)
[2020-09-27] MEDS ORDERED: Furosemide 20 MG TABLET PO PRN (07:48)
[2020-09-27] MEDS ORDERED: predniSONE 20 MG TABLET PO SCH (08:00)
[2020-09-27] MEDS ORDERED: atenoloL 25 MG TABLET PO SCH (09:00)
[2020-09-27] MEDS ORDERED: Apixaban 5 MG TABLET PO SCH ×2 (09:00)
[2020-09-27] MEDS: ALPRAZolam 1 MG TABLET PO SCH ×2 (10:25→15:57)
[2020-09-27 15:35] VITALS: BP 111/77
== END 2020-09-27 17:31 | disposition short-term general hospital (02) ==
LOC: 2ANU 18:15 → EMEROOARM 18:15 → 2ANU 09-27 07:59
PROVIDERS: ADMIT Internal Medicine; ATTEND Internal Medicine

== ENCOUNTER 2021-04-15 04:24 | Inpatient (IN) ==
[2021-04-15] MEDS ORDERED: Isovue-370 500 ML BOTTLE IVP ONE (04:41)
[2021-04-15] MEDS ORDERED: Ondansetron 4 MG/2 ML VIAL IVP ONE (04:54)
[2021-04-15 05:05] LABS: Hematocrit 43.9 % (35.3-44.9); Hemoglobin 14.2 g/dL (11.5-15.4); Mean Corpuscular HGB Conc 32.3 g/dL (31.6-35.5); Mean Corpuscular Hemoglobin 31.1 pg (28.0-33.3); Mean Corpuscular Volume 96.1 fL (83.0-100.0); Mean Platelet Volume 10.2 fL (9.4-12.4); Platelet Count 172 K/mcL (140-400); Red Blood Count 4.57 M/mcL (3.82-4.97); Red Cell Distribution Width 13.3 % (11.5-14.5)
[2021-04-15 05:12] LABS: INR 1.3
[2021-04-15 05:15] LABS: Activated Partial Thrombo Time 44.9 Seconds (26.0-36.0)
[2021-04-15 05:21] LABS: BUN/Creatinine Ratio 15 (6-26); Blood Urea Nitrogen 14 mg/dL (6-20); Calcium 8.7 mg/dL (8.6-10.3); Carbon Dioxide 21 mEq/L (23-29); Chloride 111 mEq/L (98-107); Glucose 87 mg/dL (70-105); Osmolality,Calculated 288 (280-300); Sodium 139 mEq/L (136-145); eGFR For African Americans > 60 (> 60); eGFR For Non-African Americans > 60 (> 60)
[2021-04-15 05:49] LABS: Troponin I < 0.03 ng/mL (< 0.04)
[2021-04-15 05:49] LABS: Bilirubin,Urine Negative (Negative); Blood,Urine Negative (Negative); Clarity,Urine Clear (Clear); Color,Urine Colorless (Yellow); Glucose,Urine (UA) Normal (Normal); Ketones,Urine Negative (Negative); Leukocyte Esterase,Urine Negative (Negative); Nitrite,Urine Negative (Negative); PH,Urine 6.5 pH Units (5.0-8.0); Protein,Urine Negative (Neg-Trace); Specific Gravity,Urine 1.025 (1.010-1.025); Urobilinogen,Urine Normal (Normal)
[2021-04-15] MEDS ORDERED: Azithromycin 500 MG in 0.9 % Sodium Chloride 250 ML IVPB ONE (06:38)
[2021-04-15] MEDS ORDERED: Naloxone 0.4 MG/ML INJ IVP PRN (07:16)
[2021-04-15] MEDS ORDERED: Ondansetron 4 MG/2 ML VIAL IVP PRN (07:16)
[2021-04-15] MEDS: Aspirin Enteric Coated 81 MG Tablet PO SCH (10:05)
[2021-04-15] MEDS: Furosemide 20 MG TABLET PO SCH (10:05)
[2021-04-15] MEDS: atenoloL 25 MG TABLET PO SCH ×2 (10:18→20:00)
[2021-04-15] MEDS ORDERED: Ipratropium/Albuterol Neb 3 ML IH PRN (11:42)
[2021-04-15 12:40] LABS: Triglycerides 97 mg/dL (< 150)
[2021-04-15] MEDS: Apixaban 5 MG TABLET PO SCH (21:47)
[2021-04-15] MEDS: ALPRAZolam 1 MG TABLET PO PRN (21:47)
[2021-04-16 01:25] LABS: Basophils % 0.3 %; Eosinophils # 0.1 K/mcL (0.0-0.6); Eosinophils % 2.2 %; Hematocrit 41.2 % (35.3-44.9); Hemoglobin 13.2 g/dL (11.5-15.4); Immature Granulocytes % 0.2 % (0-4); Lymphocytes # 2.3 K/mcL (0.6-4.6); Lymphocytes % 38.9 %; Mean Corpuscular Hemoglobin 30.6 pg (28.0-33.3); Mean Corpuscular Volume 95.4 fL (83.0-100.0); Mean Platelet Volume 11.1 fL (9.4-12.4); Monocytes # 0.5 K/mcL (0.0-1.3); Neutrophils # 2.9 K/mcL (1.6-8.9); Platelet Count 171 K/mcL (140-400); Red Blood Count 4.32 M/mcL (3.82-4.97); Red Cell Distribution Width 13.3 % (11.5-14.5); Segmented Neutrophils % 50.4 %; White Blood Count 5.8 K/mcL (4.3-11.1)
[2021-04-16 01:47] LABS: BUN/Creatinine Ratio 17 (6-26); Blood Urea Nitrogen 14 mg/dL (6-20); Calcium 8.7 mg/dL (8.6-10.3); Carbon Dioxide 23 mEq/L (23-29); Chloride 108 mEq/L (98-107); Cholesterol 177 mg/dL (< 200); Glucose 96 mg/dL (70-105); HDL Cholesterol 44 mg/dL (40-59); LDL Cholesterol,Calculated 111 mg/dL (< 100); Osmolality,Calculated 282 (280-300); Potassium 3.7 mEq/L (3.5-5.1); Sodium 136 mEq/L (136-145); Triglycerides 112 mg/dL (< 150); eGFR For African Americans > 60 (> 60); eGFR For Non-African Americans > 60 (> 60)
[2021-04-16] MEDS: atenoloL 25 MG TABLET PO SCH ×2 (08:22→21:30)
[2021-04-16] MEDS: Furosemide 20 MG TABLET PO SCH (08:23)
[2021-04-16] MEDS: Apixaban 5 MG TABLET PO SCH ×2 (08:23→21:30)
[2021-04-16] MEDS: Aspirin Enteric Coated 81 MG Tablet PO SCH (08:24)
[2021-04-16] MEDS: *HR* OxyCODONE/APAP 10/325 TABLET PO PRN ×2 (08:28→23:38)
[2021-04-16 08:33] LABS: Estimated Average Glucose 117 mg/dl; Hemoglobin A1C 5.7 %
[2021-04-16] MEDS: ALPRAZolam 1 MG TABLET PO PRN ×2 (11:44→23:39)
[2021-04-16] MEDS: MethylPREDNISolone 40 MG/ML VIAL IVP SCH ×2 (17:03→23:38)
[2021-04-17] MEDS: MethylPREDNISolone 40 MG/ML VIAL IVP SCH (05:29)
[2021-04-17] MEDS: atenoloL 25 MG TABLET PO SCH (08:26)
[2021-04-17] MEDS: Furosemide 20 MG TABLET PO SCH (08:26)
[2021-04-17] MEDS: Apixaban 5 MG TABLET PO SCH (08:26)
[2021-04-17] MEDS: Aspirin Enteric Coated 81 MG Tablet PO SCH (08:27)
[2021-04-17 11:46] VITALS: BP 103/71; PULSE 68; TEMP 97.9; O2SAT 94
[2021-04-17] MEDS: *HR* OxyCODONE/APAP 10/325 TABLET PO PRN (13:12)
== END 2021-04-17 13:19 | disposition home or self-care (01) | DRG 60 ==
LOC: EMEROOARM 04:24 → 3BNU 04:24 → SUATTDRO 06:51 → 3BNU 07:53
PROVIDERS: ADMIT Student in an Organized Health Care Education/Training Program; ATTEND Registered Nurse